=== PATIENT | female | born 1945 | race Caucasian/White ===

== ENCOUNTER 2025-03-07 13:04 | Outpatient (AMB) | payer MEDICARE, SELFPAY ==
--- NOTE | 2025-03-07 13:05 | A.OFFPC_ITS ---
Vital Signs 3 03/07/25 13:17 Height 5 ft 2 in Weight 116 lb BMI 21.2 BP 123/63 Blood Pressure Location Lt brachial Position Sitting Respiration 16 Pulse 65 Pulse Source Pulse Oximeter Temp 97.8 F Temp Source Oral Pulse Oximetry (%) 98 Oxygen Delivery Method Room Air Intake Visit Reasons: RISK ASSESSMENT CONSULTANT / BP/ fluid retention abd Intake Note: Patient present to establish care and also discuss bp and fluid retention in the abd. Military Technology Specialist Required: Yes Accompanied by: Daughter Allergies No Known Allergies Allergy (Verified 03/07/25 13:11) Tobacco use date assessed: 03/07/25 Fall risk assessment: No Falls in past year Last assessed Fall Risk: 03/07/25 Dental Screening Dental Screen Date: 03/07/25 Did you have a dental visit in the last 12 months?: Yes Did you have a dental problem in the last 6 months where you did not have access to dental care?: No Was dental information given to patient?: Patient has dentist HPI HPI Comments 2 History of Present Illness0 Details History of Present Illness The patient is a 79-year-old female presenting for the management of a recurrent seroma post-ventral hernia repair. Ventral hernia repair with mesh complicated by recurrent mesh seroma: The patient has a history of ventral hernia repair with synthetic mesh placement 20 to 25 years ago. Complications with the mesh have led to a recurrent seroma requiring multiple aspirations, the latest being on March 01, 2023. The seroma typically presents with fluid accumulation, which causes back pain and anxiety if not drained every three to four weeks. Initial interventions included the placement of a catheter for drainage, which was removed due to infection risk. Fluid aspirated has consistently tested negative for infection. Dementia: The patient has been observed to have progressive memory decline and forgetfulness, suggestive of dementia. While she has not been formally diagnosed, symptoms indicate cognitive impairment consistent with her age. Surgical History: - Ventral hernia repair with synthetic m esh placement, approximately 20 to 25 years ago - Multiple aspirations for mesh seroma - Vaginectomy, colpoclesis, anterior-pos terior repair, elevator anniplication, mid-urethral sling and cystoscopy, 2022 Medications: - Carvedilol for hypertension Social History: - Resides in an apartment with [facility]; they do not live with their children - The patient's daughter provides primar y care assistance, including bathing and support with daily activities - Uses a cane for ambulation and require s support due to imbalance issues Family History: - No family medical history was discusse d Diagnostic Results: - Aspiration of mesh seroma on March 01, 2023, yielded fluid negative for infection Past Medical History - Paroxysmal atrial fibrillation - Hyperlipidemia - Essential hypertension - Vaginal prolapse - Cystocele - 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 - Cognitive impairment suggestive of dem entia Health Maintenance - Last colonoscopy was reportedly within normal screening intervals - Previous mammogram and Pap smears are not applicable due to hysterectomy PFSH Medical History (Updated 03/07/25 @ 14:48 by John Haddad MD) Use of cane as ambulatory aid Thickened nails Abdominal wall seroma Excessive fluid in stomach Hypertension Surgical History (Updated 03/07/25 @ 13:30 by Brijesh Wyatt CMA) H/O ovarian cystectomy H/O hernia repair Social History (Updated 03/07/25 @ 13:16 by Brijesh Wyatt CMA) Housing: Apartment Alcohol intake: never Patient Tobacco Use Status: Never used Tobacco e-Cigarette/Vaping Use: Never Used Second Hand Smoke Exposure: No service: No Current occupational status: unemployed Cognitive needs: No Hearing needs: No Vision needs: No Questionnaire PHQ-9 Over the last 2 weeks, how often have you been bothered by any of the following problems? 1. Little interest or pleasure in doing things: nearly every day 2. Feeling down, depressed, or hopeless: nearly every day 3. Trouble falling or staying asleep, or sleeping too much: several days 4. Feeling tired or having little energy: several days 5. Poor appetite or overeating: several days 6. Feeling bad about yourself - or that you are a failure or have let yourself or your family down: several days 7. Trouble concentrating on things, such as reading the newspaper or watching television: not at all 8. Moving or speaking so slowly that other people could have noticed. Or the opposite - being so fidgety or restless that you have been moving around a lot more than usual: not at all 9. Thoughts that you would be better off or of hurting yourself in some way: not at all Total score: 10 Depression Screening Interpretation: Positive Depression Screening Done: Yes 50848 - PHQ-9 Billing: Yes Source: Developed by Drs. Augustine Colbert, Abdirahman Castillo and colleagues, with an educational joellen from [employer]. Thrive Questionnaire Date Thrive assessed: 03/07/25 I am a: Patient What is your living situation today?: I have a steady place to live Within the past 12 months, did the food you bought not last and you didn't have the money to get more?: I choose not to answer this question Within the past 12 months, did you worry whether your food would run out before you got money to buy more?: I choose not to answer this question Do you have trouble paying for medicines?: I choose not to answer this question Do you have trouble getting transportation to medical appointments?: I choose not to answer this question Do you have trouble paying your heating and electricity bill?: I choose not to answer this question Do you have trouble taking care of your child, family member or friend?: I choose not to answer this question Are you currently unemployed and looking for a job?: I choose not to answer this question Are you interested in more education?: I choose not to answer this question Please select the resources that you would like help with: None Currently or been in a relationship where the following occur: I choose not to answer THRIVE Score: 0 AUDIT C Alcohol Use Questionnaire (AUDIT-C) 1. How often do you have a drink containing alcohol?: Never Total Score: 0 NICOLE-7 AMB Questionnaire NICOLE-7 Date NICOLE - 7 assessed: 03/07/25 Feeling nervous, anxious, or on edge: 3 = Nearly every day Not being able to stop or control worryin = Several days Worrying too much about different things: 1 = Several days Trouble relaxin = Several days Being so restless that it is hard to sit still: 1 = Several days Becoming easily annoyed or irritable: 1 = Several days Feeling afraid as if something awful might happen: 1 = Several days Total NICOLE-7 score (0-4 normal; 5-9 mild; 10-14 moderate; 15-21 severe): 9 Source: Developed by Drs. Augustine Colbert, Eileen Mendoza, Abdirahman Anguiano and colleagues, with an educational joellen from [employer]. NICOLE-7 Assessment Billing NICOLE-7 Assessment Tool: NICOLE-7 Assessment 03187 Review of Systems Narrative Review of Systems - Neurologic: Reports memory issues and forgetfulness - Ear, Nose, and Throat: Reports ringing in both ears, more pronounced in the left - Musculoskeletal: Reports imbalance when walking; uses a cane for stability - Dermatologic: Reports dry skin and thick toenails 10-point ROS reviewed and negative except as noted in HPI Physical exam (Primary Care) Vital Signs: Last Vital Signs Temp 97.8 F 03/07/25 13:17 Pulse 65 03/07/25 13:17 Resp 16 03/07/25 13:17 BP 123/63 03/07/25 13:17 Pulse Ox 98 03/07/25 13:17 Oxygen Delivery Method Room Air 03/07/25 13:17 BMI result Body Mass Index 21.2 Tobacco/Smoking Status: Tobacco use Status Tobacco use date assessed 03/07/25 03/07/25 13:17 Patient Tobacco Use Status Never used Tobacco 03/07/25 13:17 e-Cigarette/Vaping Use Never Used 03/07/25 13:17 PHQ-9: PHQ-9 Score PHQ-9: Total score 10 03/07/25 13:29 Depression Screening Interpretation: Positive Thrive Assessment: Date of Thrive Assessment Date Thrive assessed 03/07/25 03/07/25 13:07 Currently or been in a relationship where the following occur: I choose not to answer Narrative Physical Exam General: Well-appearing, in no acute distress. Vital signs: Within normal limits. HEENT: Normocephalic, atraumatic. PERRLA, EOMI. Conjunctiva clear, sclera anicteric. Oropharynx clear, mucous membranes moist. TMs intact bilaterally. Reports of ringing in both ears, mostly the left. Neck: Supple, no lymphadenopathy, no thyromegaly, no JVD or carotid bruits. Cardiovascular: RRR, normal S1/S2, no murmurs, rubs, or gallops. Peripheral pulses 2+ and symmetric. No edema. Respiratory: Lungs clear to auscultation bilaterally, no wheezes, rales, or rhonchi. Normal effort. Abdomen: Soft, non-tender, non-distended. Normoactive bowel sounds. No hepatosplenomegaly, no masses. Presence of seroma, fluid being aspirated regularly. MSK: Full range of motion, no joint swelling or deformity. Normal gait. Uses a cane at home for balance. Skin: Warm, dry, intact. No rashes, lesions, or pallor. Skin and hands are dry. Neuro: Alert and oriented x3. Cranial nerves II-XII intact. Strength 5/5 throughout. Sensation intact. Reflexes 2+ symmetric. Normal coordination and gait. Reports of unbalance. Psych: Appropriate mood and affect. Normal judgment and insight. Concerns of dementia setting in. Coding Level of Care Code New Pt Level 4 (95948) Diagnoses Thickened nails L60.2 Abdominal wall seroma S30.11XA Hypertension I10 Use of cane as ambulatory aid Z99.89 Additional Codes NICOLE-7 Assessment Billing - NICOLE-7 Assessment Tool: NICOLE-7 Assessment 37876 ([id number]) PHQ-9 - 41124 - PHQ-9 Billing: Yes ([id number]) Assessment & Plan Assessment & Plan (1) Thickened nails: Code(s): L60.2 - Onychogryphosis Category: Medical (2) Abdominal wall seroma: Code(s): S30.11XA - Contusion of abdominal wall, initial encounter Category: Medical (3) Hypertension: Code(s): I10 - Essential (primary) hypertension Category: Medical (4) Use of cane as ambulatory aid: Code(s): Z99.89 - Dependence on other enabling machines and devices Category: Medical Plan Consent Discussion regarding the need for regular drainage of the recurrent seroma. Discussed potential complications associated with seroma aspiration, such as infection risk. Risks, benefits, and alternatives were discussed with the patient's daughter, Tatiana. Permission was given to proceed with referrals to general surgery and interventional radiology. Patient was informed and verbally consented to the use of an ambient scribe for clinic note documentation during this visit. Plan 1. Ventral Hernia Repair With Synthetic Mesh Complicated By Recurrent Mesh Seroma - Immediate referrals made to both general surgery and interventional radiology for evaluation and management of recurrent seroma. - Plan for seroma aspiration every 3-4 weeks as symptoms progress, based on patient comfort and interval assessment by specialists. - Discussed benefits of avoiding complications such as infection and progressive pain. 2. Dementia - A formal cognitive assessment to be considered during follow-up visits for a potential diagnosis. - Monitor for any progression of symptoms and provide supportive care. Discussion Notes I explained the likely need for ongoing management of her recurrent seroma through regular aspirations, approximately every 3-4 weeks, to prevent discomfort and potential complications. I reviewed the risks associated with seroma aspiration, including minimal infection risk and the necessity of prompt intervention if symptoms worsen. I discussed her current medication regimen, confirming that carvedilol is appropriate for blood pressure management. Referral to both general surgery and interventional radiology was deemed necessary to ensure continued management of the seroma. A referral to podiatry was made for nail management. We discussed potential risks associated with her cognitive decline, suspected to be early dementia. Patient Instructions - Follow up for scheduled appointments with general surgery and interventional radiology. - Monitor for any increase in pain, swelling, or signs of infection at seroma site and seek prompt medical evaluation if these occur. - Continue current medication regimen. - Use a cane as needed for balance and avoid hazardous movements. - Attend podiatry referral for toenail care. Medical Decision Making The patient presents with a complex history of recurrent seroma post-ventral hernia repair with mesh, necessitating a focused approach to prevent complications such as infection and increased symptomatic burden. Management primarily involves referral to specialists who can provide definitive intervention and guidance. The patient exhibits early signs of dementia, and future cognitive assessments may be beneficial to ascertain the extent of impairment and tailor supportive measures. A diligent approach to follow-up care is critical, ensuring all interventions are compatible with the patient's systemic condition and current health status. I confirmed that our management plan aligns with targeted relief of symptoms, consistent monitoring, and mitigation of potential complications. Total Time Statement 30 min Total time spent caring for the patient today includes pre-visit chart review, documentation, review of laboratory and diagnostic imaging results, medication reconciliation, medically necessary evaluation, counseling on diagnoses, care coordination, ordering appropriate tests and medications, review of tests performed by other providers, reporting test results to the patient, and communication with other healthcare providers. Orders: Orders 2 Complete Blood Count Auto Diff Today Z13.9 - Encounter for screening, unspecified TSH reflex Free T4 Today Z13.9 - Encounter for screening, unspecified Vitamin B12 and Folate Today Z13.9 - Encounter for screening, unspecified Magnesium Today Z13.9 - Encounter for screening, unspecified Vitamin D 1,25 dihydroxy Today Z13.9 - Encounter for screening, unspecified Hepatitis B Surface Antigen Today Z13.9 - Encounter for screening, unspecified Syphilis Screen Today Z13.9 - Encounter for screening, unspecified Comprehensive Met. Panel Today Z13.9 - Encounter for screening, unspecified Hepatitis C Antibody Today Z13.9 - Encounter for screening, unspecified HIV Ab/Ag Today Z13.9 - Encounter for screening, unspecified UA CC w/rflx Micro + Cult Today Z13.9 - Encounter for screening, unspecified Lipid Panel Today Z13.9 - Encounter for screening, unspecified Hemoglobin A1c Today Z13.9 - Encounter for screening, unspecified Hepatitis B Surface Antibody Today Z13.9 - Encounter for screening, unspecified Referrals 2 Interventional Radiology Referral S30.11XA - Contusion of abdominal wall, initial encounter General Surgery Referral S30.11XA - Contusion of abdominal wall, initial encounter Podiatry Referral L60.2 - Onychogryphosis
[2025-03-07 13:17] VITALS: BP 123/63; PULSE 65; RESP 16; TEMP 36.6; O2SAT 98; BMI 21.2
== END 2025-03-07 13:57 | disposition home or self-care (01) ==
LOC: HO.HMCFMS 13:04
PROVIDERS: PCP Student in an Organized Health Care Education/Training Program; Visit Provider Student in an Organized Health Care Education/Training Program
DX: L60.2 Onychogryphosis (principal); S30.11XA Contusion of abdominal wall, initial encounter; I10 Essential (primary) hypertension; Z99.89 Dependence on other enabling machines and devices

== ENCOUNTER 2025-03-07 13:04 | Outpatient (REF) | payer MEDICARE, SELFPAY ==
[2025-03-07 17:45] LABS: MANUAL DIFF FLAG NO
[2025-03-07 17:55] LABS: Appearance Urine Cloudy; Glucose Urine UA Negative (Negative); PH 6.0 (5.0-9.0); Specific Gravity - Urine 1.015 (1.005-1.025); UMIC TRIGGER UACC YES
[2025-03-07 18:01] LABS: Hematocrit 43.4 % (37.0-47.0); Hemoglobin 13.5 g/dl (12.0-16.0); Imm Gran Abs Auto 0.02 X10*3/uL (0.00-0.03); Imm Gran Pct Auto 0.3 % (0.0-0.4); Lymphocytes Absolute Auto 2.0 X10*3/uL (1.2-4.9); Mean Corpuscular HGB Conc 31.1 g/dl (31.0-35.0); Mean Corpuscular Hemoglobin 27.3 pg (27.0-33.0); Mean Corpuscular Volume 87.9 fL (80.0-98.0); NRBC Abs Auto 0.000 X10*3/uL (0.0-0.012); NRBC Pct Auto 0.0 /100WBC (0.0-0.2); Platelet Count 260 X10*3/uL (160-400); Red Blood Count 4.94 X10*6/uL (4.20-5.50); White Blood Count 5.7 X10*3/uL (4.8-10.8)
[2025-03-07 18:04] LABS: UACC Culture Trigger YES
[2025-03-07 18:28] LABS: Alanine Aminotransferase 16 U/L (0-31); Albumin Level 4.2 g/dL (3.5-5.0); Alkaline Phosphatase 92 U/L (39-117); Anion Gap 11 (12-20); Aspartate Amino Transferase 32 U/L (5-31); Blood Urea Nitrogen 10 mg/dL (9-16); Calcium 10.1 mg/dL (8.4-10.2); Carbon Dioxide 26 mmol/L (22-29); Chloride 106 mmol/L (96-108); Cholesterol 189 mg/dL (<200); Estimated Glomerular Filt Rate > 60; HDL Cholesterol 46 mg/dL (>40); Magnesium 2.5 mg/dL (1.6-2.6); Potassium 3.8 mmol/L (3.3-5.1); Sodium 139 mmol/L (135-145); Total Protein 7.3 g/dL (6.5-8.0); Triglycerides 139 mg/dL (<150)
[2025-03-07 18:54] LABS: Folate 6.1 ng/mL (> or = 4.0); Vitamin B12 393 pg/mL (200-900)
[2025-03-08 05:46] LABS: HBS Num1 0.34 mIU/mL (0-7.99); HBsAGNum1 0.35 S/CO (0.00-0.99); HIV Num 1 0.05 S/CO (0.00-0.99); Hepatitis B Surface Antigen Negative (Negative); ~HepC Num1 0.22 S/CO (0.00-0.79); ~Hepatitis B Surface Antibody NONREACTIVE (Nonreactive); ~Hepatitis C Antibody Nonreactive (Nonreactive)
[2025-03-08 05:57] LABS: Syphilis Screen Nonreactive (Nonreactive)
[2025-03-12 06:59] LABS: VITAMIN D (1,25 OH) D3 62 pg/mL; Vit D (1,25-Dihydroxy) Total 62 pg/mL (18-72); Vitamin D (1,25 OH) D2 <8 pg/mL
== END 2025-03-07 13:05 | disposition home or self-care (01) ==
LOC: HO.HKASLDS 13:04
PROVIDERS: PCP Internal Medicine; Visit Provider Student in an Organized Health Care Education/Training Program
DX: Z13.9 Encounter for screening, unspecified (principal); L60.2 Onychogryphosis; S30.11XA Contusion of abdominal wall, initial encounter; I10 Essential (primary) hypertension; Z99.89 Dependence on other enabling machines and devices
CPT/HCPCS: 36415; 80053; 80061; 81001; 82607; 82652; 82746; 83036; 83735; 84443; 85025; 86706; 86780; 86803; 87086; 87340; 87389; 96127; 99202; 99212

== ENCOUNTER 2025-03-13 09:14 | Outpatient (AMB) | payer MEDICARE, SELFPAY ==
[2025-03-13 09:18] VITALS: BP 130/59; PULSE 67; BMI 21.2
--- NOTE | 2025-03-13 09:18 | A.OFFVIS_ITS ---
Vital Signs 3 03/13/25 09:18 Height 5 ft 2 in Weight 116 lb BMI 21.2 BP 130/59 L Blood Pressure Location Rt radial Position Sitting Pulse 67 Intake Visit Reasons: recurrent fluid collection at old hernia Sx site Intake Note: Patient referred by PCP Dr. Haddad for assessment of recurrent fluid collection at old hernia surgical site on abdomen. Moved from [place] since December. Patient c/o: back pain. Daughter reports cyst underneath mesh that keeps getting filled. C/o bulge and Left inguinal hernia. [facility] [place] CT guided aspiration 03-01-2025 X2 at [facility] [place]. Reports 7 aspirations since May. [facility] report~ CT abdomen/pelvis 01-11-2025. [employer] Administrator Required: Yes [employer] Administrator Services: [employer] Administrator Offered & Declined (Patients daughter present who will serve as senior security analyst) Accompanied by: daughter Maya Allergies No Known Allergies Allergy (Verified 03/13/25 09:29) Medication List - Last Reconciled 03/13/25 by Hardik Vital MD carvedilol 3.125 mg PO BID HPI Comments Details: 79-year-old Yakut speaking female presents with past surgical history remarkable for implantation of mesh in her anterior abdominal wall for repair of a ventral hernia complicated by chronic seroma requiring drainage procedures. The patient's daughter who acts as her senior security analyst accompanies her and reports that her 1st surgery occurred around [address] Tex benedict at [facility] placed a mesh repair of ventral hernia at the same time she underwent gynecologic surgery. She lists her mother's prior operations as a ?vaginectomy?, colpoclesis, anterior and posterior repair, levator ani plication, mid urethral sling, and multiple cystoscopies. She goes on to say that her parents moved to [place] approximately a year ago but has since moved back from [place] because of family issues in her mother's declining health. She has required multiple aspirations of what she describes as a large? fluid pocket? in close proximity to the mesh in her mother's anterior abdominal wall. When the fluid builds up it apparently causes distress such as abdominal pain and back pain and abdominal compressive symptoms. She did see Dr. Fidelina Canas at [facility] a couple of times who recommended a chronic catheter. This apparently was placed at one point and caused great distress secondary to infection which has since cleared after the catheter was removed and the patient underwent antibiotic therapy. The patient's daughter is adamant that they do not want to have the catheter placed again. They are amenable to the idea of multiple intermittent drainage procedures from time to time. I have no records from any prior surgery or prior doctor's visits. COUNT INCLUDES THE [facility] Medical History (Updated 03/07/25 @ 14:48 by John Haddad MD) Use of cane as ambulatory aid Thickened nails Abdominal wall seroma Excessive fluid in stomach Hypertension Surgical History (Updated 03/13/25 @ 09:34 by SAAD Colón) History of midurethral sling procedure H/O: hysterectomy Hx of heart artery stent H/O ovarian cystectomy H/O hernia repair Social History (Updated 03/07/25 @ 13:16 by Brijesh Wyatt CMA) Housing: Apartment Alcohol intake: never Patient Tobacco Use Status: Never used Tobacco e-Cigarette/Vaping Use: Never Used Second Hand Smoke Exposure: No service: No Current occupational status: unemployed Cognitive needs: No Hearing needs: No Vision needs: No Review of Systems Const All systems reviewed & are unremarkable except as noted in HPI and below Physical Exam Vital Signs: Last Vital Signs Pulse 67 03/13/25 09:18 BP 130/59 L 03/13/25 09:18 BMI result Body Mass Index 21.2 Const Other: A pleasant but quite frail appearing elderly lady who ambulates with difficulty using a cane as well as heavy support from her daughter who studies her and helps move her forward. General: cooperative and no acute distress Nutritional Appearance: thin and other HEENT Head: Yes normal to inspection Eyes General: appearance normal, both eyes and all related structures Neck Neck: Yes normal visual inspection Chest Chest palpation & inspection: normal inspection of the chest Resp Effort & Inspection: normal respiratory effort and able to speak in complete sentences Cardio Rate: regular rate Rhythm: regular rhythm GI Other: Soft nontender, somewhat distended. (daughter reports this is her baseline) Extensive midline laparotomy scar that is well healed. Palpable stiffness in the anterior abdominal wall consistent with placement of prior prosthetic mesh type unknown. The left lateral region of the abdomen at what probably is the edge of the mesh there is a soft easily reducible golf ball-sized mass that is consistent with recurrent hernia. Aspirate it is on the right side they are pointed out at the daughter. They appeared healed sooner any other complication Abdomen image: 2 1. scar 2. Stiff tissue consistent with mesh-effect 3. 2-3cm soft reducible hernia Assessment & Plan Assessment & Plan (1) Abdominal wall seroma: Code(s): S30.11XA - Contusion of abdominal wall, initial encounter Category: Medical Plan: I told the daughter (and the patient) that I did not have a solution for them. I think any operative endeavor to try and remove the old mesh and reconstruct her anterior abdominal wall would most likely be something that she just would not survive. I think trying to repair her recurrent hernia would also be an event that she would not survive. I agree that placement of a chronic indwelling catheter we will most likely result in repeat infections and I do not think this is a tenable solution. The only thing I advocate it was the idea of episodic radiology guided aspiration of her seroma for symptomatic relief. The daughter discussed with me the possibility of sclerotherapy I told her I really did not know that much about it. I also feel it is probably more in the domain of Interventional Radiology. They are established at [facility] with the IR department there and so they will reconnect. I told the patient's daughter if they needed my help with anything of his happy to be there advocate, speak to someone or facilitate a process. They expressed a desire to undergo periodic symptomatic seroma aspirations (like paracentesis in a cirrhotic patient) and I think this is probably the only real avenue open to them. They said they would pursue that plan and reach out to me should they need any help. Coding Level of Care Code New Pt Level 3 (51765) Diagnoses Abdominal wall seroma S30.11XA Time Spent (min) 30 Comment Patient visit, record review and coordination of care time
== END 2025-03-13 09:57 | disposition home or self-care (01) ==
LOC: HO.HGS 09:15
PROVIDERS: PCP Student in an Organized Health Care Education/Training Program; Visit Provider Surgery
DX: S30.11XA Contusion of abdominal wall, initial encounter (principal); K80.20 Calculus of gallbladder without cholecystitis without obstruction
CPT/HCPCS: 99203

== ENCOUNTER → 2025-03-13 09:14 | Outpatient (BNVA) | payer MEDICARE, SELFPAY | PROVIDERS: PCP Student in an Organized Health Care Education/Training Program; Visit Provider Surgery | DX: S30.11XA Contusion of abdominal wall, initial encounter (principal); L76.34 Postprocedural seroma of skin and subcutaneous tissue following other procedure | CPT/HCPCS: 99202 ==

== ENCOUNTER 2025-03-21 14:51 | Outpatient (AMB) | payer MEDICARE, SELFPAY ==
--- OUTSIDE RECORDS SUMMARY | 2023-11-02 10:30 | XMS_ITS ---
Author Organization [facility] Address [address] [place] [address] Care Team Providers Care Contract Project Manager Name Role Phone Hannah MIGUEL, Rebel Primary Care Provider U David Callahan Unavailable [phone] Encounters Encounter [facility] [address] 11/02/2023 David Cook Plan Of Treatment No Information Progress Notes * Cindy RICHDOB:1945 (79 yo F)Acc No.[id number]:11/02/2023 Progress Note Patient: Cindy VIERA Provider: Gretchen Cook DPM :1945 A ge:78 Y S ex:Female Date:11/02/2023 Address:[address] [place] [address] Pcp:Rebel Young MD Subjective: * Chief Complaints: [...] 0 11/02/2023 Generated for Loci jyothi/Nagi/eTransmitting on: 05/22/2024 06:58 PM EST
--- OUTSIDE RECORDS SUMMARY | 2023-12-07 10:30 | XMS_ITS ---
Author Organization [facility] Address [address] [place] [address] Care Team Providers Care Stitch Burnisher Name Role Phone Hannah MIGUEL, Rebel Primary Care Provider U David Callahan Unavailable [phone] Encounters Encounter [facility] [address] 12/07/2023 David Cook Plan Of Treatment No Information Progress Notes * Cindy RICHDOB:1945 (79 yo F)Acc No.[id number]:12/07/2023 Progress Note Patient: Cindy VIERA Provider: Gretchen Cook DPM :1945 A ge:78 Y S ex:Female Date:12/07/2023 Address:[address] [place] [address] Pcp:Rebel Young MD Subjective: * Chief Complaints: * * Medical History: Objective: * Vitals: Assessment: Plan: * Treatment: * Images: * The named appointment provid er may or may not be the originator of this progress note, and it is not deemed complete until electronically signed by the appointment provider. Sign off status: Pending * Provider: Gretchen Cook DPM Date: 0 12/07/2023 Generated for Loci jyothi/Nagi/eTransmitting on: 05/22/2024 06:58 PM EST
--- OUTSIDE RECORDS SUMMARY | 2024-09-13 06:30 | XMS_ITS ---
Author Organization [facility] Address [address] [place] [phone] Care Team Providers Care Telegraph Office Route Aide Name Role Phone LUIS DANIEL BISHOP Primary Care Provider Kat NULL MD, POLLO Unavailable REASON FOR VISIT US FLUID CAT W/ IMAGING Encounters Encounter Location Date Provider Diagnosis [facility] [address] [place] [address] [place] [address] 09/13/2024 POLLO NULL MD Plan Of Treatment No Information Progress Notes * DEBORA ZAVALADOB:1945 (79 yo F)Acc No.[id number]:09/13/2024 Progress Notes Patient: DEBORA VIERA Provider: Bebe Null M.D. :1945 A ge:79 Y S ex:Female Date:09/13/2024 Address:[address] [facility] [address] [place], [place] [phone] Pcp:LUIS DANIEL BISHOP Subjective: * Chief Complaints: * U S FLUID CAT W/ IMAGING Billing Information: * Procedure Codes: * Electronic signature of PRES ELIZABETH NULL MD on 03/21/2025 at 05:57 PM TELEPHONE APPOINTMENT CLERK Sign off status: Pending * Provider: Bebe Null M.D. Date: 0 09/13/2024 Generated for Loci ng/Faxing/eTransmitting on: 1 05/22/2024 05:57 PM TELEPHONE APPOINTMENT CLERK
--- OUTSIDE RECORDS SUMMARY | 2024-10-10 10:30 | XMS_ITS ---
Author Organization [facility] Address [address] [place], [place] [phone] Care Team Providers Care Master Barber Name Role Phone DionicioRex real Primary Care Provider Debbi Tomlinson Unavailable [phone] REASON FOR VISIT CRS follow up, MSSA [...] Provider Diagnosis [facility] [address] [facility] [address] [place] [address] 10/10/2024 Debbi Hernandez Assessments Encounter Date Diagnosis [...] Notes * DEBORA ZAVALADOB:1945 (79 yo F)Acc No.[id number]:10/10/2024 Progress Notes Patient: DEBORA VIERA Provider: Augusta Hernandez MD :1945 A ge:79 Y S ex:Female Date:10/10/2024 Address:[address] [place], [place] [address], [place] [address], [facility] Pcp:Rex Packer Subjective: * Chief Complaints: * [...] Electronic signature of Bhavin Hernandez MD on 03/21/2025 at 05:58 PM UR COORDINATOR Sign off status: Pending * Provider: Augusta Hernandez MD Date: 0 10/10/2024 Generated for Aman roe/Nagi/Arielaitting on: 1 05/22/2024 05:58 PM UR COORDINATOR History and Physical Notes * HPI (History [...]
--- OUTSIDE RECORDS SUMMARY | 2025-03-20 23:59 | XMS_ITS | Continuity of Care Document ---
Author Organization [address] [place] [address]- Care Team Providers Care Hand Stemmer Name Role Phone Not on Staff, PCP Primary Care Physician Unavail able Encounter [facility] R [id number] Date(s): 02/18/25 - 03/20/[address] [place] [address]- Attending Physician: Kirti Willoughby Admitting Physician: Kirti Willoughby Referring Physician: Kirti Willoughby Encounter Type: Triage Allergies, Adverse Reactions, Alerts No Known Allergies Medications carvedilol 3.125 mg oral tablet See Instructions, 1 tablet By Mouth 2 times a day depending on BP, Refills 0, Maintenance, :37:00 AM EST, Instructions Replace Required Details, Partial fill upon patient request if the prescription is for a schedule II opioid drug. Start Date: 03/01/25 Status: Ordered Medication Dispense Status: Completed Total Allowed Fills: 1 Fills Dispensed: 0 Coreg 12.5 mg oral tablet 12.5 mg, 1, tablet, By Mouth, 2 times a day, # 60 tablet, Refills 0, Maintenance, 08/18/22 11:45:00 AM EDT, Partial fill upon patient request if the prescription is for a schedule II opioid drug. Start Date: 08/18/22 Status: Ordered Medication Dispense Status: Completed Quantity: 60.0 Unit: tablet Total Allowed Fills: 1 Fills Dispensed: 0 estradiol 0.1 mg/g vaginal cream = 1 Gm, Vaginally, Daily at bedtime, Use 3x a week, # 42.5 Gm, 11 Refills, Maintenance, 09/29/22 4:50:00 PM EDT, [facility] #[id number], Partial fill upon patient request if the prescription is for a schedule II opioid drug., 163, cm, 09/20/22 11:47:00 EDT, Height, 57.2, kg, 09/29/22 16:41:00 EDT, Dry Weight Start Date: 09/29/22 Status: Ordered Medication Dispense Status: Completed Quantity: 42.5 Unit: g Total Allowed Fills: 12 Fills Dispensed: 0 lisinopril 10 mg oral tablet 10 mg, 1, tablet, By Mouth, Daily, # 30 tablet, Refills 11, Tot. Refills 11, Maintenance, 08/09/23 1:29:00 PM EDT, Route to Pharmacy Electronically, [facility] #[id number], Partial fill upon patient request if the prescription is for a schedule II opioid drug., 163, cm, 08/09/23 13:23:00 EDT, Height, 59.5, kg, 02/14/23 15:35:00 EST, Dry Weight Start Date: 08/09/23 Status: Ordered Medication Dispense Status: Completed Quantity: 30.0 Unit: tablet Total Allowed Fills: 12 Fills Dispensed: 0 magnesium (as citrate)-melatonin 71.5 mg-1 mg oral tablet 2 tablet, By Mouth, Daily, 0 Refills, Maintenance, 01/21/25 4:02:00 PM EDT, Partial fill upon patient request if the prescription is for a schedule II opioid drug. Start Date: 01/21/25 Status: Ordered Medication Dispense Status: Completed Total Allowed Fills: 1 Fills Dispensed: 0 mirabegron 25 mg oral tablet, extended release 1 tablet = 25 mg, By Mouth, Daily, # 30 tablet, 11 Refills, Maintenance, 11/05/22 2:58:00 PM EDT, Partial fill upon patient request if the prescription is for a schedule II opioid drug. Start Date: 11/05/22 Status: Ordered Medication Dispense Status: Completed Quantity: 30.0 Unit: tablet Total Allowed Fills: 12 Fills Dispensed: 0 Vitamin B12 1000 mcg oral tablet 1 tablet = 1,000 mcg, By Mouth, Daily, # 30 tablet, 0 Refills, Maintenance, 09/24/14 2:40:29 PM EDT,Tablet Start Date: 09/24/14 Status: Ordered Medication Dispense Status: Completed Quantity: 30.0 Unit: tablet Total Allowed Fills: 1 Fills Dispensed: 0 Vitamin C By Mouth, Daily, 0 Refills, Maintenance, 01/21/25 4:01:00 PM EDT, Partial fill upon patient requestif the prescription is for a schedule II opioid drug. Start Date: 01/21/25 Status: Ordered Medication Dispense Status: Completed Total Allowed Fills: 1 Fills Dispensed: 0 Vitamin D3 1000 intl units oral tablet See Instructions, 2,000 units By Mouth Daily, # 30 tablet, 3 Refills, 01/02/09 9:19:10 AM EDT Start Date: 01/02/09 Status: Ordered Medication Dispense Status: Completed Quantity: 30.0 Unit: tablet Total Allowed Fills: 4 Fills Dispensed: 0 Vitamin E By Mouth, 0 Refills, Maintenance, 01/21/25 4:01:00 PM EDT, Partial fill upon patient request if theprescription is for a schedule II opioid drug. 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 Hyperlipidemia Confirmed Active Hypertension Confirmed Active Cystocele, midline Confirmed Active Nocturia Confirmed Active Overactive bladder Confirmed Active Paroxysmal A-fib Confirmed Active Urethral hypermobility Confirmed Active Social History Social History Type Response Smoking Status Never smoker entered on: 12/26/13 Sex Sex Representation Female (finding) Implantable Device List Procedure Provider Procedure Date Device Type Site Colpocleisis Vagina Kylee Vigil MD 09/06/22 Unknown Urethra Device Identifier Serial Number Lot or Batch Number Manufacturing Date Expiration Date Distinct Identification Code MRI Safety Implantable Status Assigning Authority Unknown [id number] 11-02 [id number] 4 Unknown 11/04/24 Unknown Unknown Active Unknown Patient Care team information Care Team Personnel Name: Lucio Rodgers RN Position: [facility] RN Member Role: Primary Care Nurse Name: Jonathan Li RN Position: [facility] RN Member Role: Primary Care Nurse Name: Not on Staff, PCP Position: [facility] Physician (General Medicine) Member Role: PCP Name: Alexis Hanks RN Position: [facility] RN Member Role: Primary Care Nurse Care Team Related Persons Name: JERMAINE BISWAS Name: OZ, DIEUDONNE Name: DANELLE HEART Insurance Providers Guarantor name: DEBORA ZAVALA [facility] Information #: 1 Payer: [facility] [employer] O Payer Identifier: NA Member Number: [id number] Group Number: NA Subscriber Identifier: NA Relationship to Subscriber: self Coverage Type: NA Coverage Verification Date: NA Telecom: NA Address: NA Health Plan Information #: 2 Payer: [facility] Payer Identifier: NA Member Number: [id number] Group Number: NA Subscriber Identifier: NA Relationship to Subscriber: self Coverage Type: NA Coverage Verification Date: NA Telecom: NA Address: Health Plan Information #: 3 Payer: [facility] [employer] Payer Identifier: NA Member Number: [id number] Group Number: NA Subscriber Identifier: NA Relationship to Subscriber: self Coverage Type: MEDICAID Coverage Verification Date: NA Telecom: NA Address: NA Health Plan Information #: 4 Payer: MEDICAID [employer]OF STATE Payer Identifier: NA Member Number: [id number] Group Number: NA Subscriber Identifier: NA Relationship to Subscriber: self Coverage Type: MEDICAID Coverage Verification Date: NA Telecom: Address:
--- NOTE | 2025-03-21 14:56 | A.OFFPC_ITS ---
Vital Signs 03/21/25 15:01 Height 5 ft 2 in Weight 115 lb 8 oz BMI 21.1 BP 126/63 Blood Pressure Location Lt brachial Position Sitting Respiration 16 Pulse 66 Pulse Source Pulse Oximeter Temp 97.8 F Temp Source Oral Pulse Oximetry (%) 99 Oxygen Delivery Method Room Air Intake Visit Reasons: 2 wk - lab review Intake Note: Patient present for lab review and patient is complaining about worsening of hemmroids. Meter Tester Primary Required: Yes Meter Tester Primary Name: Daughter Accompanied by: Daughter Allergies No Known Allergies Allergy (Verified 03/21/25 14:59) Medication List - Last Reconciled 03/23/25 by John Haddad MD carvedilol 3.125 mg PO BID cyanocobalamin (vitamin B-12) 1,000 mcg PO DAILY Tobacco use date assessed: 03/07/25 Fall risk assessment: No Falls in past year Last assessed Fall Risk: 03/21/25 Dental Screening Dental Screen Date: 03/07/25 HPI HPI Comments History of Present Illness Details History of Present Illness The patient is a 79 year old female presenting for a follow-up visit to review lab results and manage multiple chronic conditions, including a cyst, hemorrhoids, and dementia. Cyst: The patient was evaluated by a general surgeon who determined there was nothing they could do and deferred management to interventional radiology. A prior recommendation for a catheter was refused by the family due to the patient's dementia and associated risks. The patient has an appointment scheduled with interventional radiology for a needle-guided drainage, and sclerotherapy has been mentioned as a potential future option to shrink the cyst. Dementia: The patient has a diagnosis of dementia, which manifests as sundowning, where her anxiety and worry increase in the evening. Her dementia previously led to complications with a catheter, which she pulled out, resulting in sepsis. The family currently manages her behavior with redirection and has safety measures in place, such as living in an apartment without stairs to prevent falls. External Hemorrhoids: The patient has been experiencing bleeding from external hemorrhoids, which has become more frequent recently. A topical cream was applied, but it caused a burning sensation. Coronary Artery Disease: The patient has a history of coronary artery stents placed around 2001 or 2002. She has been followed by cardiology but recently missed an appointment. Weakness: The patient sometimes reports feeling weak and describes a sensation of her pena ds and feet dropping. Surgical History: - Coronary artery stent placement (circa [id number]) Medications: - Topical cream for hemorrhoids (name no t specified) Social History: - Housing: Lives in an apartment with no stairs. - Functional Status: Diagnosed with robin ntia, experiences sundowning, and requires family support for care and redirection. Diagnostic Results: - Complete Blood Count: White blood cell s, red blood cells, hemoglobin, hematocrit, and platelets are within normal limits. - Comprehensive Metabolic Panel: Sodium, potassium, chloride, and renal function are good. - Liver Function Tests: Total bilirubin, ALT, AST, and alkaline phosphatase are good. - Lipid Panel: Total protein, albumin, a nd triglycerides are great; LDL was 116 mg/dL on a non-fasting sample. - Glucose: Random glucose was 83 mg/dL. - Hemoglobin A1c: 5.6%. - Vitamins/Hormones: Vitamin B12 is 180, while Vitamin D, folate, and thyroid levels are good. - Urinalysis: Positive for trace blood, leukocyte esterase, and elevated white blood cells, consistent with asymptomatic bacteriuria. - Infectious Disease Screen: Negative fo r Celiac disease, Hepatitis B, Hepatitis C, and HIV. Past Medical History - Dementia - History of sepsis, which occurred afte r she pulled out a catheter. - Coronary artery disease with stent vicente cement in 2001 or 2002. Health Maintenance - The patient has an upcoming appointmen t with a detective and intelligence analyst. - Fall precautions are in place; the pat precious lives in a single-level apartment. med rec summary This case involves a 79-year-old female with a complex medical history, primarily characterized by recurrent abdominal issues stemming from a remote ventral hernia repair, alongside significant cardiovascular and renal disease. Throughout the provided records from April 2020 to February 2025, she is managed for chronic conditions including essential hypertension, hyperlipidemia, atherosclerosis, and chronic constipation. Her care is complicated by cognitive impairment, including poor insight and memory deficits, and a moderate risk for falls. The patient has a significant history of pre-existing conditions. A DEXA scan in April 2020 revealed osteopenia.?Her cardiovascular history includes coronary artery disease with two stents placed in 2006 and 2007, aortic atherosclerosis, and a consistently noted 2/6 heart murmur.?She also has hypertensive kidney disease, which is classified at different times as stage 1 or 2 Chronic Kidney Disease (CKD).?Other chronic diagnoses include vitamin B12 deficiency, iron deficiency anemia, and mixed urinary incontinence. The primary focus of her medical encounters is a recurring and problematic abdominal fluid collection. 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 The patient experienced multiple related symptoms, including abdominal pain, distention, bloating, nausea, and chronic constipation.?She also presented with recurrent urinary tract infections, with a urine culture in July 2024 showing Staphylococcus aureus.?On November 29, 2024, she complained of abdominal burning, bloating, and excessive belching, leading to a diagnosis of GERD without esophagitis.?Her intermittent numbness and weakness in the extremities were suspected to be anxiety-related. Treatment for her conditions involved both medication management and procedural interventions. Her hypertension and cardiac conditions were managed with medications including carvedilol, lisinopril, and amlodipine.?Her recurrent abdominal fluid collection required multiple CT-guided aspiration procedures. On January 25, 2025, approximately 650 mL of cloudy yellow fluid was aspirated.?Another procedure on March 01, 2025, removed 1000 mL of turbid, yellow fluid.?She also received IV antibiotics via a PICC line for an abdominal infection. Additional prescribed treatments addressed her other symptoms. For urinary incontinence, she was prescribed Myrbetriq and later oxybutynin.?Her recurrent UTI was treated with intramuscular ceftriaxone and oral ciprofloxacin.?Chronic constipation was managed with castor oil, Miralax, and stool softeners.?GERD symptoms were addressed with omeprazole.?She also took vitamin B12 supplements for her deficiency. The prognosis is guarded due to the recurrent nature of the mesh-related fluid collection and her multiple comorbidities. The plan as of late 2024 involved ongoing monitoring and symptomatic management. This included encouraging ambulation, dietary modifications, and continuing medications for her chronic conditions.?Recommended future treatment included follow-up with a general surgeon, Dr. Marlow, for further evaluation of the mesh-related issues and consideration of surgical intervention.?Additionally, referrals to urology and cardiology were made for management of recurrent UTIs and her cardiovascular dis ease, respectively.?Regular follow-up visits with her primary care provider were scheduled to monitor her overall condition. [facility] Medical History (Updated 03/23/25 @ 18:53 by John Haddad MD) Chronic constipation Hyperlipidemia Hemorrhoids Use of cane as ambulatory aid Thickened nails Abdominal wall seroma Excessive fluid in stomach Hypertension Surgical History (Updated 03/21/25 @ 15:18 by John Haddad MD) History of midurethral sling procedure H/O: hysterectomy Hx of heart artery stent H/O ovarian cystectomy H/O hernia repair Social History (Updated 03/21/25 @ 15:01 by Brijesh Wyatt CMA) Housing: Apartment Alcohol intake: never Patient Tobacco Use Status: Never used Tobacco e-Cigarette/Vaping Use: Never Used Second Hand Smoke Exposure: No service: No Current occupational status: unemployed Cognitive needs: No Hearing needs: No Vision needs: No Questionnaire Thrive Questionnaire Date Thrive assessed: 03/07/25 I am a: Patient What is your living situation today?: I have a steady place to live Within the past 12 months, did the food you bought not last and you didn't have the money to get more?: I choose not to answer this question Within the past 12 months, did you worry whether your food would run out before you got money to buy more?: I choose not to answer this question Do you have trouble paying for medicines?: I choose not to answer this question Do you have trouble getting transportation to medical appointments?: I choose not to answer this question Do you have trouble paying your heating and electricity bill?: I choose not to answer this question Do you have trouble taking care of your child, family member or friend?: I choose not to answer this question Do you have trouble with day-to-day activities such as bathing, preparing meals, shopping, managing finances, etc.?: Yes Are you currently unemployed and looking for a job?: I choose not to answer this question Are you interested in more education?: I choose not to answer this question Please select the resources that you would like help with: None Currently or been in a relationship where the following occur: I choose not to answer THRIVE Score: 0 AUDIT C Alcohol Use Questionnaire (AUDIT-C) 3. How often do you have six or more drinks on one occasion?: Never Total Score: 0 NICOLE-7 AMB Questionnaire NICOLE-7 Date NICOLE - 7 assessed: 03/07/25 Source: Developed by Drs. Augustine Colbert, Eileen Mendoza, Abdirahman Anguiano and colleagues, with an educational joellen from [employer]. Review of Systems Narrative Review of Systems - Constitutional: Reports feeling weak and tired at times. - GI: Reports bleeding from external hemorrhoids. - : Denies urinary burning or frequency. - Musculoskeletal: Reports a sensation of her hands and feet dropping. - Psychiatric/Neurologic: Experiences sundowning with increased worry and anxiety at night as part of her dementia. 10-point ROS reviewed and negative except as noted in HPI Physical exam (Primary Care) Vital Signs: Last Vital Signs Temp 97.8 F 03/21/25 15:01 Pulse 66 03/21/25 15:01 Resp 16 03/21/25 15:01 BP 126/63 03/21/25 15:01 Pulse Ox 99 03/21/25 15:01 Oxygen Delivery Method Room Air 03/21/25 15:01 BMI result Body Mass Index 21.1 Tobacco/Smoking Status: Tobacco use Status Tobacco use date assessed 03/07/25 03/21/25 14:56 Patient Tobacco Use Status Never used Tobacco 03/21/25 15:01 e-Cigarette/Vaping Use Never Used 03/21/25 15:01 Thrive Assessment: Date of Thrive Assessment Date Thrive assessed 03/07/25 03/21/25 14:56 Currently or been in a relationship where the following occur: I choose not to answer Narrative Physical Exam General: Well-appearing, in no acute distress. Vital signs: Within normal limits. HEENT: Normocephalic, atraumatic. PERRLA, EOMI. Conjunctiva clear, sclera anicteric. Oropharynx clear, mucous membranes moist. TMs intact bilaterally. Left eye is very sensitive. Neck: Supple, no lymphadenopathy, no thyromegaly, no JVD or carotid bruits. Cardiovascular: RRR, normal S1/S2, no murmurs, rubs, or gallops. Peripheral pulses 2+ and symmetric. No edema. History of heart artery stents. Respiratory: Lungs clear to auscultation bilaterally, no wheezes, rales, or rhonchi. Normal effort. Shortness of breath noted. Abdomen: Soft, non-tender, non-distended. Normoactive bowel sounds. No hepatosplenomegaly, no masses. MSK: Full range of motion, no joint swelling or deformity. Normal gait. Skin: Warm, dry, intact. No rashes, lesions, or pallor. External hemorrhoids noted. Neuro: Alert and oriented x3. Cranial nerves II-XII intact. Strength 5/5 throughout. Sensation intact. Reflexes 2+ symmetric. Normal coordination and gait. Psych: Appropriate mood and affect. Normal judgment and insight. Sundowning noted. Coding Level of Care Code Est Pt Level 3 (30505) Add On Problem Visit Only Diagnoses Anxiety F41.9 Hx of heart artery stent Z95.5 Hypertension I10 Abdominal wall seroma S30.11XA Hemorrhoids K64.9 Use of cane as ambulatory aid Z99.89 Cognitive decline R41.89 Low vitamin B12 level R79.89 CAD (coronary artery disease) I25.10 Atherosclerosis I70.90 Osteopenia M85.80 CKD (chronic kidney disease) N18.9 Urinary incontinence, mixed N39.46 Assessment & Plan Assessment & Plan (1) Anxiety: Code(s): F41.9 - Anxiety disorder, unspecified Category: Medical (2) Hx of heart artery stent: Comment: [facility] stents X2~ 2002 Code(s): Z95.5 - Presence of coronary angioplasty implant and graft Category: Surgical (3) Hypertension: Code(s): I10 - Essential (primary) hypertension Category: Medical (4) Abdominal wall seroma: Code(s): S30.11XA - Contusion of abdominal wall, initial encounter Category: Medical (5) Hemorrhoids: Code(s): K64.9 - Unspecified hemorrhoids Category: Medical (6) Use of cane as ambulatory aid: Code(s): Z99.89 - Dependence on other enabling machines and devices Category: Medical (7) Cognitive decline: Code(s): R41.89 - Other symptoms and signs involving cognitive functions and awareness Category: Medical (8) Low vitamin B12 level: Code(s): R79.89 - Other specified abnormal findings of blood chemistry Category: Medical (9) CAD (coronary artery disease): Code(s): I25.10 - Atherosclerotic heart disease of [place] coronary artery without angina pectoris Category: Medical (10) Atherosclerosis: Code(s): I70.90 - Unspecified atherosclerosis Category: Medical (11) Osteopenia: Code(s): M85.80 - Other specified disorders of bone density and structure, unspecified site Category: Medical (12) CKD (chronic kidney disease): Code(s): N18.9 - Chronic kidney disease, unspecified Category: Medical (13) Urinary incontinence, mixed: Code(s): N39.46 - Mixed incontinence Category: Medical Plan Consent Discussions were held regarding upcoming procedures including a needle-guided drainage and potential sclerotherapy for a cyst. The family has an appointment to discuss these options further with interventional radiology. Informed refusal for a previously recommended catheter was noted, citing the patient's dementia and risk of self-removal and infection. Patient was informed and verbally consented to the use of an ambient scribe for clinic note documentation during this visit. Plan 1. Cyst (Unspecified) - Proceed with scheduled appointment with interventional radiology tomorrow for needle-guided drainage. - Sclerotherapy was noted as a potential future option to shrink the cyst and prevent recurrence. 2. External Hemorrhoids - A referral will be placed for the patient to be evaluated by a oil and gas specialist for management of her bleeding external hemorrhoids. 3. Coronary Artery Disease - A referral will be placed for follow-up with a show jumping instructor. - A complete diagnostic echocardiogram has been ordered to be completed prior to the cardiology appointment. 4. Vitamin B12 Deficiency - A prescription for vitamin B12 supplementation will be sent to the pharmacy. - The patient is to take one tablet daily for three months to replete her levels and help with symptoms of weakness. 5. Dementia - Continue current supportive care, including redirection techniques and maintaining a safe home environment to prevent falls. - The family was reassured that they are providing good care and that her condition is part of the aging process. 6. Asymptomatic Bacteriuria - No antibiotic treatment is indicated at this time as the patient is asymptoma tic. - The family was advised to monitor for behavioral changes or urinary symptoms (burning, frequency) which could indicate a developing symptomatic urinary tract infection. Discussion Notes I reviewed the patient's recent lab results with her and her family, noting that most values are excellent for her age. We discussed the low-normal vitamin B12 level, and I prescribed a supplement to address this and her symptoms of fatigue. I also explained that the findings on her urinalysis indicate asymptomatic bacteriuria, which does not require treatment at this time, but her family should monitor for any new symptoms. We discussed the plan for her cyst, which includes a needle-guided drainage procedure with interventional radiology tomorrow. I provided referrals to gastroenterology for her hemorrhoids and to cardiology for follow-up of her cardiac history, along with an order for an echocardiogram. I reassured the family that they are doing a great job managing her dementia and providing a safe environment. Patient Instructions - Take one vitamin B12 pill every day for the next 3 months. - Please go to your scheduled appointment with interventional radiology tomorrow for the cyst drainage. - We are referring you to a school library media specialist (show jumping instructor) and a digestive systems mgr (oil and gas specialist). - We have ordered a heart ultrasound (echocardiogram) for you to get done before you see the school library media specialist. - Our referral office will call you to help schedule the specialist appointments. - Call us if you notice any changes like burning with urination, needing to urinate more often, or significant changes in her behavior, as this could be a sign of infection. - Continue with your scheduled detective and intelligence analyst appointment next week. Medical Decision Making The patient is a 79-year-old female with multiple chronic issues, most notably dementia, which significantly influences her plan of care. Review of recent laboratory studies showed reassuring results overall, with commendable metabolic and hematologic profiles for her age. The low-normal vitamin B12 level of 180 is clinically significant in the context of her reported weakness and fatigue, warranting supplementation. Urinalysis findings are consistent with asymptomatic bacteriuria; in an elderly patient with dementia and no urinary symptoms, observation is preferred over antibiotic treatment to avoid unnecessary side effects and resistance. The care plan focuses on coordinating specialty care: proceeding with interventional radiology for cyst management, and arranging referrals to gastroenterology for symptomatic hemorrhoids and cardiology for managing her known coronary artery disease. An echocardiogram is ordered to provide the show jumping instructor with current data on cardiac structure and function. The overall goal is comfort and conservative management, supporting the family in their caregiving role. Total Time Statement 20 min Total time spent caring for the patient today includes pre-visit chart review, documentation, review of laboratory and diagnostic imaging results, medication reconciliation, medically necessary evaluation, counseling on diagnoses, care coordination, ordering appropriate tests and medications, review of tests performed by other providers, reporting test results to the patient, and communication with other healthcare providers. Orders: Orders CA echo transthoracic complete 03/21/25 Z95.5 - Presence of coronary angioplasty implant and graft Referrals Gastroenterology Referral K64.9 - Unspecified hemorrhoids Cardiology Referral Z95.5 - Presence of coronary angioplasty implant and graft Medications: New cyanocobalamin (vitamin B-12) 1,000 mcg PO DAILY 90 tabs 0RF
[2025-03-21 15:01] VITALS: BP 126/63; PULSE 66; RESP 16; TEMP 36.6; O2SAT 99; BMI 21.1
--- OUTSIDE RECORDS SUMMARY | 2025-03-21 18:58 | XMS_ITS | Patient Health Record ---
Author Organization [facility] Address [address] [place] [address] Care Team Providers Care Arm Maker Name Role Phone Hannah MIGUEL, [facility] Primary Care Provider U nguyen David Cook Unavailable [phone] Allergies No Known Allergies Reason For Referral No Information Medications Medication SIG (Take, Route, Frequency, Duration) Notes Start Date End Date Status Pantoprazole Sodium Not-Taking Vitamin B-12 1000 MCG Oral; Duration: 30 Active Vitamin D3 Not-Takin g Vitamin D (Ergocalciferol) 54851 UNIT Oral; Duration: 42 Active zzzCompression Stockings 20-30mm Hg . . .; Duration: . Active Carvedilol 12.5 MG 1 tablet with food Orally Active Orthopedic Extra Depth Shoes With Custom Heat Molded Multidensity Innersoles 1 Pair shoes with 3 Pair custom heat molded innersoles Wear Daily; Duration: 365 days Active Aspirin Not-Taking Atorvastatin Calcium 10 MG Oral; Duration: 90 Not-Taking Ciclopirox Olamine 0.77 % 1 application to affected area Externally Twice a day; Duration: 30 days Not-Takin g Isosorbide Mononitrate Not-Taking Lisinopril 20 MG Orally Act danay Ammonium Lactate 12 % 1 application to affected area Externally Twice a day to dry areas of skin on feet; Duration: 30 days 06/10/2016 Active Social History Tobacco Use: Social History Observation Description Date Details (start date - stop date) Never Smoker NA - NA Tobacco Use/Smoking Question Answer Notes Are you a: nonsmoker Additional Findings: Tobacco Non-User Aggressive non-smoker Alcohol Screen Question Answer Notes Did you have a drink containing alcohol in the p ast year? No Points 0 Interpretation Negative Tobacco use other than smoking: Question Answer Notes Are you an other tobacco user? No Problems Problem Type SNOMED Code ICD Code Onset Dates Problem Status W/U Status Risk Notes Problem Acquired hammer toe of right foot (2583679579760686 ) Other hammer toe(s) (acquired), right foot (M20.41) Active confirmed Response to treatment, Improvemen t Problem Acquired hammer toe of left foot (5345712833677107 ) Other hammer toe(s) (acquired), left foot (M20.42) Active confirmed Response to treatment, Improvemen t Problem Bilateral atherosclerosis of arteries of lower limbs (disorder) (2670613594340856 7) Atherosclerosis of enterprise artery of both lower extremities, with unspecified presence of clinical manifestation (I70.203) Active confirmed Plan Of Treatment Pending Test Test Name Order Date 67277-OEQOOMW NAIL, 6 OR MORE 02/07/2014 84228-VXUUUGH NAIL, 6 OR MORE 05/09/2014 51390-QOUFLGG NAIL, 6 OR MORE 08/14/2014 43747-JTRNOVL NAIL, 6 OR MORE 11/13/2014 88483-KQOMEED NAIL, 6 OR MORE 02/12/2015 35617-NEWXSDH NAIL, 6 OR MORE 05/14/2015 09672-XJYGHDI NAIL, 6 OR MORE 08/13/2015 37466-UAHARCV NAIL, 6 OR MORE 11/12/2015 89084-WKOVONV NAIL, 6 OR MORE 02/11/2016 11030-SROFOAQ NAIL, 6 OR MORE 06/10/2016 23889-URZIZGM NAIL, 6 OR MORE 09/09/2016 31462-EUMRCVE NAIL, 6 OR MORE 12/16/2016 50860-FOBOITL NAIL, 6 OR MORE 03/17/2017 05567-MIZGMER NAIL, 6 OR MORE 06/22/2017 66968-MOIQGJL NAIL, 6 OR MORE 09/21/2017 86753-WEYQIXO NAIL, 6 OR MORE 12/22/2017 13343-PVDICKY NAIL, 6 OR MORE 04/10/2018 85479-JUWIEVL NAIL, 6 OR MORE 07/10/2018 82913-VLSEOYP NAIL, 6 OR MORE 10/16/2018 73466-UBWYWDN NAIL, 6 OR MORE 01/17/2019 32966-EUWNRAY NAIL, 6 OR MORE 04/25/2019 24865-EEKRTXK NAIL, 6 OR MORE 2019 39257-BLKNIIS NAIL, 6 OR MORE 11/19/2019 00464-IHEHHEG NAIL, 6 OR MORE 03/17/2020 00038-XVAXPWH NAIL, 6 OR MORE 05/28/2020 32922-UIAATZR NAIL, 6 OR MORE 08/06/2020 11247-HANTAAT NAIL, 6 OR MORE 10/15/2020 28163-WQMGIUY NAIL, 6 OR MORE 01/05/2021 21777-CWKYBGV NAIL, 6 OR MORE 03/16/2021 45238-VQKFBRT NAIL, 6 OR MORE 05/21/2021 44850-VFTDPYB NAIL, 6 OR MORE 07/30/2021 91091-BQSTWNT NAIL, 6 OR MORE 10/12/2021 19179-VIQMAVK NAIL, 6 OR MORE 12/21/2021 60885-SQKWACA NAIL, 6 OR MORE 03/04/2022 41317-RONJZBS NAIL, 6 OR MORE 05/20/2022 45888-YPTXDAY NAIL, 6 OR MORE 07/29/2022 99445-GGUONAQ NAIL, 6 OR MORE 10/14/2022 35669-TDRPSZG NAIL, 6 OR MORE 12/16/2022 87642-UZMCOXQ NAIL, 6 OR MORE 03/30/2023 71334-GSCYHID NAIL, 6 OR MORE 06/08/2023 99834-FDYUYUI NAIL, 6 OR MORE 08/17/2023 56223-Dsxl Destruction, -03/30/2023 05494-Hjud Destruction, -12/16/2022 09693-Kmsj Destruction, -10/14/2022 71629-Wkja Destruction, -07/29/2022 72226-Jljg Destruction, -05/20/2022 19575-Yqyj Destruction, -03/04/2022 39159-Mfgh Destruction, 04-1712/21/2021 28366-Gqwl Destruction, 04-1710/12/2021 78605-Gdbq Destruction, -07/30/2021 68070-Nmfn Destruction, -05/21/2021 92156-Hmzp Destruction, -03/16/2021 54844-Ahbx Destruction, 1-14 01/05/2021 96022-QZQY SKIN LESIONS, OVER 4 01/06/20 24848-OWAP SKIN LESIONS, OVER 4 03/16/20 30893-JEZQ SKIN LESIONS, OVER 4 10/16/19 12431-FTNC SKIN LESIONS, OVER 4 08/07/19 74011-GJPD SKIN LESIONS, OVER 4 05/21/19 79497-ONSA SKIN LESIONS, OVER 4 07/31/19 26387-GSGY SKIN LESIONS, OVER 4 10/13/19 32181-SJVJ SKIN LESIONS, OVER 4 12/22/19 53726-NJTF SKIN LESIONS, OVER 4 05/28/19 78093-VGYZ SKIN LESIONS, OVER 4 03/17/20 23916-KYAK SKIN LESIONS, OVER 4 11/19/19 16637-YKSJ SKIN LESIONS, OVER 4 08/02/19 06451-WOIZ SKIN LESIONS, OVER 4 04/25/19 20166-LPGC SKIN LESIONS, OVER 4 01/18/20 19 92830-PTIN SKIN LESIONS, OVER 4 10/17/19 19 59883-OQPA SKIN LESIONS, OVER 4 07/11/19 19 71534-SUVM SKIN LESIONS, OVER 4 04/10/19 28330-HZBX SKIN LESIONS, OVER 4 12/23/19 18 82253-DATF SKIN LESIONS, OVER 4 09/22/19 18 91470-BLLW SKIN LESIONS, OVER 4 06/23/19 18 36177-RWLT SKIN LESIONS, OVER 4 03/17/20 17 85954-BJCD SKIN LESIONS, OVER 4 12/17/19 17 52904-MWND SKIN LESIONS, OVER 4 06/11/19 86598-KOTU SKIN LESIONS, OVER 4 09/10/19 17 62805-ZDUP SKIN LESIONS, OVER 4 03/04/20 85686-WABO SKIN LESIONS, OVER 4 05/20/19 43187-TJFF SKIN LESIONS, OVER 4 07/30/19 62265-UTXB SKIN LESIONS, OVER 4 10/15/19 23682-ADHO SKIN LESIONS, OVER 4 12/17/19 98894-FQAF SKIN LESIONS, OVER 4 03/30/20 31966-CLBP SKIN LESIONS, OVER 4 08/17/19 24 42416-OSBQ SKIN LESIONS, OVER 4 03/06/20 24 00928-SFVQ SKIN LESIONS, 2 TO 4 02/11/20 16 92373-SDCS SKIN LESIONS, 2 TO 4 11/12/19 16 92266-AONA SKIN LESIONS, 2 TO 4 08/13/19 16 48244-MVQC SKIN LESIONS, 2 TO 4 05/14/19 16 52767-WVJG SKIN LESIONS, 2 TO 4 02/13/20 15 90688-KQYP SKIN LESIONS, 2 TO 4 11/14/19 15 49425-FNYM SKIN LESIONS, 2 TO 4 08/15/19 15 64661-FNRS SKIN LESIONS, 2 TO 4 05/09/19 15 85337-ZHVT SKIN LESIONS, 2 TO 4 02/08/20 14 Insurance Providers Payer Name Payer Address Payer Phone Subscriber Number Group Number Insured Name Patient Relationship to Insured Coverage Start Date Coverage End Date [employer] [address] [address] [place] [address] [id number] Cindy Rich Self - patient is the insured Medical (General) History Medical History History ICD Code Cholesterol Heart disease Hypertension ASO/PVD Surgical History Surgery Date(Month/Year) hernia 2002 vaginectomy, colpocleisis, a nterior posterior repair, levator aniplication, sling, cystocopy 09/06/22 Hospitalization History Reason Date(Month/Year)
--- OUTSIDE RECORDS SUMMARY | 2025-03-21 18:58 | XMS_ITS | Patient Health Record ---
Author Organization [facility] Address [address] [place] [address] Care Team Providers Care Seamless Hosiery Knitter Name Role Phone LUIS DANIEL BISHOP Primary Care Provider Kat SOUZA MD, POLLO Unavailable [phone] Allergies No Known Allergies Results Component Value Reference Range Notes CT PERCUT ABSCESS DRAINAGE - CPT 76199 Reviewed date:08/30/2024 09:28:58 AM Interpretation: Performing Lab: Notes/Report: CT ABD/PEL W/O CONT - CPT 74 176 Reviewed date:08/08/2024 09:27:36 AM Interpretation: Performing Lab: Notes/Report: Signed [facility] [address] [place] [address] Patient: DEBORA ZAVALA Ordering Dr: POLLO SOUZA MD : [address]: BALDEMAR,PRIMARY PROVIDER Age/Sex: 78/F Family Dr: Pat Status: REG CLI Report #: [id number] Pat Loc: RCT Date: 07/31/24 Reason:Recurrent incisional hernia, Non-recurrent bilateral inguinal hernia withou Exam:[id number] CT/CT ABD/PEL W/O CONT ___ TECHNIQUE: CT of the abdomen and pelvis without IV contrast. Axial images from the lung bases to the upper thighs were performed. Sagittal and coronal reformats were performed. RADIATION DOSE TECHNIQUE: Automated exposure control CTDIvol 20mGy DLP 1074mGY.cm COMPARISON: None. FINDINGS: Limitations: Lack of IV contrast limits evaluation for pathologies such as inflammation, infection, neoplasm, or vascular abnormalities.Mild motion artifact. Lung bases: The lung bases appear clear. Heart: Mild cardiomegaly. Severe coronary artery calcifications of the visualized LAD. Small pericardial effusion. Liver: Normal. Gallbladder and bile ducts: Cholecystectomy. Mild post cholecystectomy ductal ectasia. Spleen: Normal. Pancreas: Normal. Adrenal glands: There is thickening of both adrenal glands which is nonspecific but often adenomatous. Kidneys: No renal calculus or hydronephrosis. Urinary bladder: Tiny focus of gas in the anterior urinary bladder image 121 series 201. Reproductive: Hysterectomy. Bowel: There is diverticulosis noted in the colon but no convincing evidence of diverticulitis. Mild dilatation of loops of small bowel in the left lower quadrant that measure up to 2.9 cm. Appendix: The appendix appears normal. Vessels: There is a severely atherosclerotic but normal caliber abdominal aorta. Mesentery/Peritoneum: No free air or significant ascites. Lymph nodes: No pathologic adenopathy. Bones: Severe degenerative change at the pubic symphysis. Mild leftward curvature of the lumbar spine. Moderate to severe degenerative disc disease at L5-S1 with vacuum disc phenomena. Other: Ventral hernia repair with mesh. There is a large collection along the inner margin of the mesh which has Hounsfield units values of about 12. This collection measures about 22 cm craniocaudal and about 17.9 cm medial-lateral and about 8 cm AP image 77 series 201 and image 68 series 203. No significant surrounding fat stranding. There is a moderate left inguinal hernia containing fat and a loop of small bowel. See image 124 series 201. No hernia in the anterior body wall in the location of the mesh. Small fat containing left spigelian hernia with the hernia sac measuring about 3.1 cm medial-lateral and 1.5 cm AP image 80 series 201. IMPRESSION: Ventral hernia repair. There is a large near fluid attenuation collection deep to mesh with measurements as above. This likely represents a seroma but could represent a liquified hematoma. Abscess is less likely given lack of adjacent fat stranding. Small fat containing left spigelian hernia. Mildly dilated loop of small bowel in the left lower quadrant measuring up to 2.9 cm. This likely represents partial small-bowel obstruction from left inguinal hernia. Tiny focus of gas in the urinary bladder may be due to recent instrumentation or cystitis. Other findings as above. Signature: Electronically Signed by DULCE GARNETT MD at 31-Jul-2024 11:08:31 AM Electronically Dictated/Signed: 07/31/24 1108 by: DULCE GARNETT MD Transcribed by: ICR OPERATION RESEARCH ANALYST Reason For Referral Reason EVAL AND TREAT Diagnosis 1 Unilateral inguinal hernia, without obstruction or gangrene, not specified as recurrent (K40.90) Referring Provider First Name LUIS DANIEL Referring Provider Last Name EDNA Referring Provider Speciality Family [facility] Referred Organization [facility] Referred Provider POLLO SOUZA MD Referred Address [address] [place] [address],[place], [place],[address], Referred Provider Specialty General Surg elisa Clinical Notes [place] MCGUIRE [place] 07/11/2024 10:03:17 AM >APPT SCHEDULED July @ 11:15 Referral Priority Routine Medications Medication SIG (Take, Route, Frequency, Duration) Notes Start Date End Date Status oxyBUTYnin Chloride ER 10 MG Tablet Extended Release 24 Hour 1 tablet Orally Once a day Not-Taking Carvedilol 12.5 MG Tablet 1 tablet with food Orally Twice a day Active Lisinopril 10 MG Tablet 1 tablet Orally Once a day Active Social History Tobacco Use: Social History Observation Description Date Details (start date - stop date) Never Smoker NA - NA Social History Tobacco Use: Social Info Question Answer Notes Tobacco Control (Standard) Tobacco use: Nonsmoker Vital Signs Heart Rate 53 /min 08/14/2024 Temperature 98.0 degrees Fahrenheit 08/14/2024 Respiratory Rate 18 /min 08/14/2024 Oximetry 97 % 08/14/2024 Blood pressure diastolic 71 mm Hg 08/14/2024 Weight-kg 57.29 kg 08/14/2024 Height 64 in 08/14/2024 Blood pressure systolic 147 mm Hg 08/14/2024 Weight 126.3 lbs 08/14/2024 BMI 21.68 kg/m2 08/14/2024 Encounters Encounter Location Date Provider Diagnosis [facility] [address] [place] [address] [place] [address] 07/19/2024 POLLO SOUZA MD Bilateral recurrent inguinal hernia without obstruction or gangrene K40.21 [facility] [address] [place] [address] [place] [address] 08/14/2024 POLLO SOUZA MD Abdominal wall seroma, initial encounter S30.1XXA ; Recurrent incisional hernia K43.2 and Left inguinal hernia K40.90 [facility] [address] [facility] [address] [place] [address] [place] [address] 07/26/2024 POLLO SOUZA MD Recurrent incisional hernia K43.2 and Non-recurrent bilateral inguinal hernia without obstruction or gangrene K40.20 Assessments Encounter Date Diagnosis (ICD Code) Assessment Notes Treatment Notes Treatment Clinical Notes Section Notes 07/19/2024 Bilateral recurrent inguinal hernia without obstruction or gangrene (ICD-10 - K40.21) The patient is history and exam findings today are most consistent with bilateral recurrent inguinal hernias larger on the left. I am concerned on today's exam the hernia contents may be that of ascitic fluid.The hernia contents are reducible on examination today, and there was no indication for emergent surgical intervention. This will allow for time to further investigate her recent hospitalization. This recent hospitalization and history of removal of the abdominal fluid raises concern for ascites. I will request records from her recent hospitalization as well as any imaging studies that were performed. She will follow up with me once these records are available for review, and further surgical recommendations will follow. If cross-sectional imaging was not performed, she may also require CT scan abdomen and pelvis. The left lower quadrant bulge noted on exam may also indicate a small incisional hernia. This is unclear on examination, and I will evaluate further once CT scan images are available from there.In the interim, I did have a lengthy discussion with the patient and her [id number] regarding the natural history and pathophysiology of hernias along with the associated complications including gastrointestinal obstruction, incarceration, and strangulation. She is instructed to report to the emergency department immediately should any of these arise. 07/26/2024 Recurrent incisional hernia (ICD-10 - K43.2) 07/26/2024 Non-recurrent bilateral inguinal hernia without obstruction or gangrene (ICD-10 - K40.20) 08/14/2024 Recurrent incisional hernia (ICD-10 - K43.2) CT scan of the abdomen and pelvis also shows 2 areas of spigelian type hernia in the left lateral abdomen adjacent to the margin of the previously placed mesh, the more superior of these defects is very small and contains peritoneal fat. The more inferior of these defects is somewhat larger with an adjacent loop of bowel.This is likely the cause of the patient's ongoing symptoms with intermittent pain and bulging in the left lower quadrant.Ultimately, this could easily be achieved via open approach with implantation of the small mesh.I would not recommend moving forward with this procedure until the issue of the seroma is resolved. I am concerned about infection related to the seroma, and mesh placement with ongoing infection would be contraindicated.As such, a short course of watchful waiting will be undertaken.She is cautioned to avoid heavy lifting and straining. She is also cautioned of the signs and symptoms of gastrointestinal obstruction, incarceration, and strangulation related to this hernia. She is instructed to call or return to my office or to the emergency department immediately should any of these arise. 08/14/2024 Abdominal wall seroma, initial encounter (ICD-10 - S30.1XXA) CT scan of the abdomen and pelvis performed here at [facility] on 07/31/2024 is reviewed including independent review of the images of this study as well as review of the radiologist's report. This is also reviewed in comparison to the CT scan performed at the outside hospital. The patient has developed recurrence of a very large seroma on the peritoneal surface of her previously placed mesh. She has a very large hernia mesh covering nearly the entirety of her anterior abdominal wall.There were no signs of infection or gas within the seroma, but this does appear to have recurred since the prior CT scan. At the inferior most portion of the seroma, there is a surgical tack or staple within the mesh that is adjacent to the dome of the bladder. The etiology of the seroma is unclear, however, I am concerned about fistula to the bladder. This may indicate the seroma represents urinoma.As this has recurred after aspiration, I recommend percutaneous drain placement which can be performed by Interventional Radiology. This may best be achieved at the outside hospital were the initial aspiration was performed.Further studies on the aspirate fluid will be performed including culture an assessment for fluid creatinine.This may lead to additional workup to further elucidate the cause of this seroma.Further surgical management of the hernias outlined below we will be postponed until the seroma issue has been resolved. 08/14/2024 Left inguinal hernia (ICD-10 - K40.90) The patient also has evidence of a left inguinal hernia containing a loop of nonobstructed bowel. This should also be repaired. I recommend a staged approach for this repair. This inguinal hernia will be the lowest on the priority list after surgical management of the seroma from the large ventral mesh and repair of the spigelian type incisional hernias in the left abdomen.Given her prior history of multiple surgeries, this can best be achieved via open approach. Timing for this will be addressed at future visit after the other issues are addressed. In the interim, as above, she has again cautioned to avoid prolonged heavy lifting and straining. She is also cautioned of the signs and symptoms of inguinal hernia related complications including gastrointestinal obstruction, incarceration, and strangulation. She is instructed to report to my office or to the emergency department immediately should any of these arise. 07/19/2024 Other Thank you for t he opportunity to participate in the care of this pleasant patient. Please call with any questions. 08/14/2024 Other Thank you for t he opportunity to participate in the care of this pleasant patient. Please call with any questions. Plan Of Treatment No Information Insurance Providers Payer Name Payer Address Payer Phone Subscriber Number Group Number Insured Name Patient Relationship to Insured Coverage Start Date Coverage End Date [facility] [address] [address] [place] [address] [id number] DEBORA ZAVALA Self - patient is the insured MEDICAID [address] [place], [place] [id number] [phone] [id number] DEBORA ZAVALA Self - patient is the insured 4 Medical (General) History Medical History History ICD Code Hypertension Overactive bladder Surgical History Surgery Date(Month/Year) Hernia repair X 9 Heart Stent placement X 2 Open Cholcystectomy Bladder Lift Hospitalization History Reason Date(Month/Year) Above procedure
--- OUTSIDE RECORDS SUMMARY | 2025-03-21 18:58 | XMS_ITS | Patient Health Record ---
Author Organization [facility] Address [address] [place], [place] [id number] Care Team Providers Care Laundry Room Attendant Name Role Phone Rex Packer Primary Care Provider Debbi Tomlinson Unavailable [phone] Allergies No Known Allergies Reason For Referral No Information Medications Medication SIG (Take, Route, Frequency, Duration) Notes Start Date End Date Status Cephalexin 500 MG 1 capsule Orally twi ce a day; Duration: 90 days 10/23/2024 Not-Takin g Carvedilol 3.125 MG Oral; Duration: 30 Days Active Vitamin B12 3000 MCG/ML as directed Sublingual Active Vitamin E 400 UNIT 1 capsule Orally Onc e a day 10/23/2024 Active Probiotic 250 MG as directed Orally 10/23/2024 Active Omeprazole 20 MG TAKE 1 TABLET EVERY DAY BY ORAL ROUTE FOR 100 DAYS. Oral; Duration: 30 Days Active Ondansetron 4 MG Oral; Duration: 5 Days Active Social History Tobacco Use: Social History Observation Description Date Details (start date - stop date) Never Smoker NA - NA Smoking Question Answer Notes Status nonsmoker Alcohol Screen Question Answer Notes Did you have a drink containing alcohol in the p ast year? 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 Vital Signs Heart Rate 75 /min 10/23/2024 O2-98 Casey Mahoney MA Temperature 98 degrees Fahrenheit 12/11/2024 Blood pressure diastolic 93 mm Hg 12/11/2024 Blood pressure systolic 163 mm Hg 12/11/2024 Weight 120 lbs 10/23/2024 O2-98 Casey Mahoney MA Encounters Encounter Location Date Provider Diagnosis [facility] [place] [address] 10/23/2024 Gemma Mary Local infection of t he skin and subcutaneous tissue, unspecified L08.9 ; 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 [address] [place] [address] 10/18/2024 Gemma Mary Assessments Encounter Date Diagnosis (ICD Code) Assessment Notes Treatment Notes Treatment Clinical Notes Section Notes 10/23/2024 Local infection of the skin and subcutaneous tissue, unspecified (ICD-10 - L08.9) 1. Intra-abdominal fluid collection with suspected infected mesh - Patient underwent two recent drainage procedures - First drainage in September grew Staphylococcus aureus - Second drainage on October 15 showed no bacterial growth, Microscopy: Elevated white blood cell count - Concern for persistent infection due to persistent reaccumulation of fluid. - Discontinue IV antibiotics and remove PICC line today - Initiate oral antibiotic suppression therapy (Keflex) for at least one year - Follow up with Dr. Marlow on October 30 to discuss ongoing management - Scheduled for regular drainage procedures every 4-6 weeks 2. Tinnitus/Headache - Patient reports ongoing ear blockage, ringing, and headache that started while on antibiotics; symptoms haven't resolved with discontinuation of ABT. - Physical examination shows normal tympanic membranes - Monitor symptoms for improvement following antibiotic discontinuation - Reassess at follow-up appointment if symptoms persist Follow-up: - Dr. Marlow on October 30 - Infectious Disease follow-up in approximately 6 weeks - Obtain pre-clinic labs before next follow-up appointment in approximately 6 weeks - Provide patient with PICC line removal aftercare instructions - Encouraged patient to call or return to the clinic if new or worsening symptoms arise 10/23/2024 Colonization with MSSA (methicillin-susc eptible Staphylococcus aureus) (ICD-10 - Z22.321) 1. Intra-abdominal fluid collection with suspected infected mesh - Patient underwent two recent drainage procedures - First drainage in September grew Staphylococcus aureus - Second drainage on October 15 showed no bacterial growth, Microscopy: Elevated white blood cell count - Concern for persistent infection due to persistent reaccumulation of fluid. - Discontinue IV antibiotics and remove PICC line today - Initiate oral antibiotic suppression therapy (Keflex) for at least one year - Follow up with Dr. Marlow on October 30 to discuss ongoing management - Scheduled for regular drainage procedures every 4-6 weeks 2. Tinnitus/Headache - Patient reports ongoing ear blockage, ringing, and headache that started while on antibiotics; symptoms haven't resolved with discontinuation of ABT. - Physical examination shows normal tympanic membranes - Monitor symptoms for improvement following antibiotic discontinuation - Reassess at follow-up appointment if symptoms persist Follow-up: - Dr. Marlow on October 30 - Infectious Disease follow-up in approximately 6 weeks - Obtain pre-clinic labs before next follow-up appointment in approximately 6 weeks - Provide patient with PICC line removal aftercare instructions - Encouraged patient to call or return to the clinic if new or worsening symptoms arise 12/11/2024 Local infection of the skin and subcutaneous tissue, unspecified (ICD-10 - L08.9) Assessment and Plan: 1. Recurrent Abdominal Fluid Collection - Patient has undergoin multiple drainage for reaccumulation of fluid. concern that mesh is infected with MSSA. The was explained to patient and daughter - Competed 6 weeks of cefazolin - prescribed keflex for suppression, patient declined treatment - Follow up with surgeon (Dr. Marlow) for ongoing management of abdominal fluid collection - Monitor for signs of infection (fever, chills) - Patient/family instructed to contact Infectious Disease department if concerns about recurrent infection arise Follow-up: - Surgeon follow-up with Dr. Marlow for ongoing management - Contact Infectious Disease department if concerns about recurrent infection arise - Encouraged patient to call or return to the clinic if new or worsening symptoms arise 12/11/2024 Methicillin susceptible Staphylococcus aureus infection, unspecified site (ICD-10 - A49.01) Assessment and Plan: 1. Recurrent Abdominal Fluid Collection - Patient has undergoin multiple drainage for reaccumulation of fluid. concern that mesh is infected with MSSA. The was explained to patient and daughter - Competed 6 weeks of cefazolin - prescribed keflex for suppression, patient declined treatment - Follow up with surgeon (Dr. Marlow) for ongoing management of abdominal fluid collection - Monitor for signs of infection (fever, chills) - Patient/family instructed to contact Infectious Disease department if concerns about recurrent infection arise Follow-up: - Surgeon follow-up with Dr. Marlow for ongoing management - Contact Infectious Disease department if concerns about recurrent infection arise - Encouraged patient to call or return to the clinic if new or worsening symptoms arise 12/11/2024 Frail elderly (ICD-10 - R54) Assessment and Plan: 1. Recurrent Abdominal Fluid Collection - Patient has undergoin multiple drainage for reaccumulation of fluid. concern that mesh is infected with MSSA. The was explained to patient and daughter - Competed 6 weeks of cefazolin - prescribed keflex for suppression, patient declined treatment - Follow up with surgeon (Dr. Marlow) for ongoing management of abdominal fluid collection - Monitor for signs of infection (fever, chills) - Patient/family instructed to contact Infectious Disease department if concerns about recurrent infection arise Follow-up: - Surgeon follow-up with Dr. Marlow for ongoing management - Contact Infectious Disease department if concerns about recurrent infection arise - Encouraged patient to call or return to the clinic if new or worsening symptoms arise 10/23/2024 Frail elderly (ICD-10 - R54) 1. Intra-abdominal fluid collection with suspected infected mesh - Patient underwent two recent drainage procedures - First drainage in September grew Staphylococcus aureus - Second drainage on October 15 showed no bacterial growth, Microscopy: Elevated white blood cell count - Concern for persistent infection due to persistent reaccumulation of fluid. - Discontinue IV antibiotics and remove PICC line today - Initiate oral antibiotic suppression therapy (Keflex) for at least one year - Follow up with Dr. Marlow on October 30 to discuss ongoing management - Scheduled for regular drainage procedures every 4-6 weeks 2. Tinnitus/Headache - Patient reports ongoing ear blockage, ringing, and headache that started while on antibiotics; symptoms haven't resolved with discontinuation of ABT. - Physical examination shows normal tympanic membranes - Monitor symptoms for improvement following antibiotic discontinuation - Reassess at follow-up appointment if symptoms persist Follow-up: - Dr. Marlow on October 30 - Infectious Disease follow-up in approximately 6 weeks - Obtain pre-clinic labs before next follow-up appointment in approximately 6 weeks - Provide patient with PICC line removal aftercare instructions - Encouraged patient to call or return to the clinic if new or worsening symptoms arise 10/10/2024 1. Intra-abdominal loculated fluid collection + [...] with associated nausea. Improving. Plan Of Treatment Future Test Test Name Order Date BASIC METABOLIC PANEL (Q) 12/03/2024 C-REACTIVE PROTEIN (Q) 12/03/2024 CBC (INCLUDES DIFF/PLT) (Q) 12/03/2024 SED RATE BY MODIFIED WESTERGREN (Q) 04/2024 Insurance Providers Payer Name Payer Address Payer Phone Subscriber Number Group Number Insured Name Patient Relationship to Insured Coverage Start Date Coverage End Date MEDICARE [employer] [address] [address] [place] [address] [phone] [id number] DEBORA ZAVALA Self - patient is the insured MEDICAID [address] [place], [place] [id number] DEBORA ZAVALA Self - patient is the insured Medical (General) History Medical History History ICD Code Hypertension Surgical History Surgery Date(Month/Year) Hypertension Cardiac stents CHOLECYSTECTOMY Hospitalization History Reason Date(Month/Year) as above
== END 2025-03-21 16:00 | disposition home or self-care (01) ==
LOC: HO.HMCFMS 14:52
PROVIDERS: PCP Internal Medicine; Visit Provider Student in an Organized Health Care Education/Training Program
DX: F41.9 Anxiety disorder, unspecified (principal); Z95.5 Presence of coronary angioplasty implant and graft; I12.9 Hypertensive chronic kidney disease with stage 1 through stage 4 chronic kidney disease, or unspecified chronic kidney disease; S30.11XA Contusion of abdominal wall, initial encounter; K64.9 Unspecified hemorrhoids; Z99.89 Dependence on other enabling machines and devices; R41.89 Other symptoms and signs involving cognitive functions and awareness; R79.89 Other specified abnormal findings of blood chemistry; I25.10 Atherosclerotic heart disease of native coronary artery without angina pectoris; I70.90 Unspecified atherosclerosis; M85.80 Other specified disorders of bone density and structure, unspecified site; N18.9 Chronic kidney disease, unspecified; N39.46 Mixed incontinence

== ENCOUNTER → 2025-03-21 14:51 | Outpatient (BNVA) | payer MEDICARE, SELFPAY | PROVIDERS: PCP Internal Medicine; Visit Provider Student in an Organized Health Care Education/Training Program | DX: Z71.2 Person consulting for explanation of examination or test findings (principal); I25.10 Atherosclerotic heart disease of native coronary artery without angina pectoris; N18.9 Chronic kidney disease, unspecified; N39.46 Mixed incontinence; I70.90 Unspecified atherosclerosis; R79.89 Other specified abnormal findings of blood chemistry; R41.89 Other symptoms and signs involving cognitive functions and awareness; Z99.89 Dependence on other enabling machines and devices; K64.9 Unspecified hemorrhoids; S30.11XD Contusion of abdominal wall, subsequent encounter; Z95.5 Presence of coronary angioplasty implant and graft; F41.9 Anxiety disorder, unspecified | CPT/HCPCS: 99212 ==

== ENCOUNTER 2025-03-27 07:47 | Outpatient (AMB) | payer MEDICARE, SELFPAY ==
--- OUTSIDE RECORDS SUMMARY | 2023-11-02 10:30 | XMS_ITS ---
Author Organization [facility] Address [address] [place] [address] Care Team Providers Care Storeroom Clerk Name Role Phone Hannah MIGUEL, Rebel Primary Care Provider U David Callahan Unavailable [phone] Encounters Encounter [facility] [address] 11/02/2023 David Cook Plan Of Treatment No Information Progress Notes * Cindy RICHDOB:1945 (79 yo F)Acc No.[id number]:11/02/2023 Progress Note Patient: Cindy VIERA Provider: Gretchen Cook DPM :1945 A ge:78 Y S ex:Female Date:11/02/2023 Address:[address] [place] [phone] Pcp:Rebel Young MD Subjective: * Chief Complaints: [...] DPM Date: 0 11/02/2023 Generated for Loci jyothi/Nagi/eTransmelena on: 05/28/2024 07:50 AM EST
--- OUTSIDE RECORDS SUMMARY | 2023-12-07 10:30 | XMS_ITS ---
Author Organization [facility] Address [address] [place] [address] Care Team Providers Care Building Maintenance Engineer Name Role Phone Hannah MIGUEL, Rebel Primary Care Provider U David Callahan Unavailable [phone] Encounters Encounter Location Date [facility] [address] 12/07/2023 David Cook Plan Of Treatment No Information Progress Notes * Cindy RICHDOB:1945 (79 yo F)Acc No.[id number]:12/07/2023 Progress Note Patient: Cindy VIERA Provider: Gretchen Cook DPM :1945 A ge:78 Y S ex:Female Date:12/07/2023 Address:[address] [place] [phone] Pcp:Rebel Young MD Subjective: * Chief Complaints: * * Medical History: Objective: * Vitals: Assessment: Plan: * Treatment: * Images: * The named appointment provid er may or may not be the originator of this progress note, and it is not deemed complete until electronically signed by the appointment provider. Sign off status: Pending * Provider: Grtechen Cook DPM Date: 0 12/07/2023 Generated for Loci jyothi/Nagi/eTmariasmelena on: 05/28/2024 07:50 AM EST
--- OUTSIDE RECORDS SUMMARY | 2024-09-13 06:30 | XMS_ITS ---
Author Organization [facility] Address [address] [place] [phone] Care Team Providers Care Financial Analysis Advisor Name Role Phone LUIS DANIEL BISHOP Primary Care Provider Kat NULL MD, POLLO Unavailable REASON FOR VISIT US FLUID CAT W/ IMAGING Encounters Encounter Location Date Provider Diagnosis [facility] [address] [place] [address] [place] [address] 09/13/2024 POLLO NULL MD Plan Of Treatment No Information Progress Notes * DEBORA ZAVALADOB:1945 (79 yo F)Acc No.[id number]:09/13/2024 Progress Notes Patient: DEBORA VIERA Provider: Bebe Null M.D. :1945 A ge:79 Y S ex:Female Date:09/13/2024 Address:[address] [facility] [address] [place], [place] [phone] Pcp:LUIS DANIEL BISHOP Subjective: * Chief Complaints: * U S FLUID CAT W/ IMAGING Billing Information: * Procedure Codes: * Electronic signature of PRES ELIZABETH NULL MD on 03/27/2025 at 06:49 AM SUPERVISOR FUNCTIONAL TESTING Sign off status: Pending * Provider: Bebe Null M.D. Date: 0 09/13/2024 Generated for Loci ng/Faxing/eTransmitting on: 1 05/28/2024 06:49 AM SUPERVISOR FUNCTIONAL TESTING
--- OUTSIDE RECORDS SUMMARY | 2024-10-10 10:30 | XMS_ITS ---
Author Organization [facility] Address [address] [place], [place] [phone] Care Team Providers Care Tractor Expert Name Role Phone DionicioRex real Primary Care Provider Debbi Tomlinson Unavailable [phone] REASON FOR VISIT CRS follow up, MSSA in abdominal drain, intra-abdominal fluid collection Social History Tobacco Use: Social History Observation Description Date Details (start date - stop date) Never Smoker NA - NA Smoking Question Answer Notes Status nonsmoker Alcohol Screen Question Answer Notes Did you have a drink containing alcohol in the p ast year? No Points 0 Interpretation Negative Encounters Encounter Location Date Provider Diagnosis [facility] [address] [facility] [address] [place] [address] 10/10/2024 Debbi Hernandez Assessments Encounter Date Diagnosis (ICD Code) Assessment Notes Treatment Notes Treatment Clinical Notes Section Notes 10/10/2024 1. Intra-abdominal loculated fluid collection + MSSA - DOMINIC drain placed through surgical mesh on 08/28/2024 to drain seroma. - Approximately 6/3 DOMINIC drain removed. Cultures grew out MSSA. 2. Acute enteritis. Noted on CT. Stool panel ordered but does not appear it was collected. Recommend obtaining stool sample for testing. Patient reports 5 small loose stools today. 3. Ileus. On bowel regimen. Improving. 4. Abdominal pain with associated nausea. Improving. Plan Of Treatment No Information Progress Notes * DEBORA ZAVAALDOB:1945 (79 yo F)Acc No.[id number]:10/10/2024 Progress Notes Patient: DEBORA VIERA Provider: Augusta Hernandez MD :1945 A ge:79 Y S ex:Female Date:10/10/2024 Address:[address] [place], [place] [address], [address], [facility] Pcp:Rex Packer Subjective: * Chief Complaints: * 1 . CRS follow up. 2. MSSA in abdominal drain, intra-abdominal fluid collection. * HPI: : Patient is a 79-year-old female with hypertension who was admitted 09/04-09/11/2024 with? I ntra-abdominal loculated fluid collection with cultures positive for MSSA associated with a ventral wall mesh, acute enteritis, SBO, and Ileus. Patient had a DOMINIC drain placed through surgical mesh on 08/28/2024. Cultures at that time were negative and the patient was discharged home. Patient then presented with abd pain and elevated lactic. C T abdomen pelvis on 09/04/2024 showed pigtail drainage catheter in place with significant decrease in size of loculated fluid collection in the anterior peritoneal cavity suspicion for acute enteritis with developing small bowel obstruction was also noted along with thickening of the esophagus extending into the stomach.She was evaluated by general surgery who was concerned about an infection to the mesh that her drain was placed through. It was felt that removing the drain would be the best option. Cultures were obtained from the drain which grew out Staphylococcus aureus. She was DC'd on 4-6 weeks of IV antibiotics with cefazolin followed by oral suppression given retained mesh in place. * ROS: A ll other review of systems negative except per HPI. * Medical History: H ypertension. * Surgical History: H ypertension , Cardiac stents , CHOLECYSTECTOMY . * Hospitalization/Major Diagno stic Procedure: a s above . * Social History: T obacco Use: S moking S tatus n onsmoker D rugs/Alcohol: A lcohol Screen D id you have a drink containing alcohol in the past year? N o P oints 0 I nterpretation N egative Objective: * Vitals: * Examination: G eneral Examination: GENERAL APPEARANCE: Alert and oriented x3, in no apparent distress. HEAD: normocephalic, atraumatic. EYES: e xtraocular movement intact (EOMI). ORAL CAVITY: mucous membranes moist. NECK/THYROID: neck supple, full range of motion. SKIN: no rashes, warm and dry. HEART: regular rate and rhythm. LUNGS: breathing unlabored, clear to auscultation bilaterally, good air movement. ABDOMEN: soft, nontender, nondistended, bowel sounds present. EXTREMITIES: n o clubbing, cyanosis, or edema. NEUROLOGIC: n o obvious neurological deficits. ? Assessment: * Assessment: 1. Intra-abdominal loculated fluid collection + MSSA - DOMINIC drain placed through surgical mesh on 08/28/2024 to drain seroma. - Approximately /3 DOMINIC drain removed. Cultures grew out MSSA. 2. Acute enteritis. Noted on CT. Stool panel ordered but does not appear it was collected. Recommend obtaining stool sample for testing. Patient reports 5 small loose stools today. 3. Ileus. On bowel regimen. Improving. 4. Abdominal pain with associated nausea. Improving. Plan: * Treatment: * Images: * Electronic signature of Bhavin Hernandez MD on 03/27/2025 at 06:50 AM BID CLERK Sign off status: Pending * Provider: Augusta Hernandez MD Date: 0 10/10/2024 Generated for Aman roe/Nagi/Arielaitting on: 1 05/28/2024 06:50 AM BID CLERK History and Physical Notes * HPI (History of Present Illness) Category Sub-Category Detail Notes Category Not es Patient is a 79 -year-old female with hypertension who was admitted 09/04-09/11/2024 with Intra-abdominal loculated fluid collection with cultures positive for MSSA associated with a ventral wall mesh, acute enteritis, SBO, and Ileus. Patient had a DOMINIC drain placed through surgical mesh on 08/28/2024. Cultures at that time were negative and the patient was discharged home. Patient then presented with abd pain and elevated lactic. CT abdomen pelvis on 09/04/2024 showed pigtail drainage catheter in place with significant decrease in size of loculated fluid collection in the anterior peritoneal cavity suspicion for acute enteritis with developing small bowel obstruction was also noted along with thickening of the esophagus extending into the stomach.She was evaluated by general surgery who was concerned about an infection to the mesh that her drain was placed through. It was felt that removing the drain would be the best option. Cultures were obtained from the drain which grew out Staphylococcus aureus. She was DC'd on 4-6 weeks of IV antibiotics with cefazolin followed by oral suppression given retained mesh in place. Examination Category Sub-Category Detail Notes Category Not es General Examination GENERAL APPEARANCE: Alert an d oriented x3, in no apparent distress HEAD: normocephalic, atrau matic EYES: extraocular movement intact (EOMI) NECK/THYROID: neck supple, full ra nge of motion HEART: regular rate and rhy thm LUNGS: breathing unlabored, clear to auscultation bilaterally, good air movement ABDOMEN: soft, nontender, non distended, bowel sounds present NEUROLOGIC: no obvious neurologi shelly deficits SKIN: no rashes, warm and dry EXTREMITIES: no clubbing, cyanosi s, or edema ORAL CAVITY: mucous membranes [address]
--- OUTSIDE RECORDS SUMMARY | 2025-03-21 23:59 | XMS_ITS | Continuity of Care Document ---
Author Organization [address] [place] [address]- Care Team Providers Care Marketing Strategy Analyst Name Role Phone Not on Staff, PCP Primary Care Physician Unavail able Encounter [facility] Date(s): 02/19/25 - 03/21/[address] [place] [address]- Encounter Type: Triage Allergies, Adverse Reactions, Alerts [...] 11 Refills, Maintenance, 09/29/22 4:50:00 PM EDT, [id number], Partial fill upon patient request if the [...] 1:29:00 PM EDT, Route to Pharmacy Electronically, [facility][id number], Partial fill upon patient request if the [...] 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 Hyperlipidemia Confirmed Active Hypertension [...] MRI Safety Implantable Status Assigning Authority Unknown [id number] Unknown 11/04/24 Unknown Unknown Active Unknown Patient Care team information Care Team Personnel Name: Lucio Rodgers RN Position: [facility] RN Member Role: Primary Care Nurse Name: Jonathan Li RN Position: [facility] RN Member Role: Primary Care Nurse Name: Not on Staff, PCP Position: [facility] Physician (General Medicine) Member Role: PCP Name: Alexis Hanks RN Position: [facility] RN Member Role: Primary Care Nurse Care Team Related Persons Name: JERMAINE BISWAS Name: DIEUDONNE CLINTON Name: DANELLE HEART Insurance Providers Guarantor name: DEBORA ZAVALA Health Plan Information #: 1 Payer: [facility] MCARE ADVANTAGE HMO Payer Identifier: NA Member Number: [id number] Group Number: GALLO Subscriber Identifier: GALLO Relationship to Subscriber: self Coverage Type: NA Coverage Verification Date: NA Telecom: NA Address: NA Health Plan Information #: 2 Payer: [facility] MCARE ADV Payer Identifier: NA Member Number: [id number] Group Number: Subscriber Identifier: GALLO Relationship to Subscriber: self Coverage Type: NA Coverage Verification Date: NA Telecom: NA Address: NA Health Plan Information #: 3 Payer: [facility] [employer] Payer Identifier: NA Member Number: [id number] Group Number: Subscriber Identifier: Relationship to Subscriber: self Coverage Type: MEDICAID Coverage Verification Date: NA Telecom: NA Address: NA Health Plan Information #: 4 Payer: MEDICAID OUTOF STATE Payer Identifier: NA Member Number: [id number] Group Number: Subscriber Identifier: Relationship to Subscriber: self Coverage Type: MEDICAID Coverage Verification Date: NA Telecom: NA Address:
--- OUTSIDE RECORDS SUMMARY | 2025-03-22 10:50 | XMS_ITS | Continuity of Care Document ---
Author Organization [facility] ter Address [address] [place] [address]- Care Team Providers Care Agent Spa Desk Name Role Phone Not on Staff, PCP Primary Care Physician Unavail able Encounter [facility] Date(s): 03/22/25 - 03/22/[address] [address]- Discharge Disposition: A-D/C Home Attending Physician: Amy Canas MD Admitting Physician: Amy Canas MD Referring Physician: Amy Canas MD Encounter Type: Disch Daystay Allergies, Adverse Reactions, Alerts No Known Allergies Medications carvedilol 3.125 mg oral tablet See Instructions, 1 tablet By Mouth 2 times a day depending on BP, Refills 0, Maintenance, 257:37:00 AM EST, Instructions Replace Required Details, Partial [...] 11 Refills, Maintenance, 09/29/22 4:50:00 PM EDT, [facility][id number], Partial fill upon patient request if the [...] 1:29:00 PM EDT, Route to Pharmacy Electronically, [facility][id number], Partial fill upon patient request if the [...] 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 Hyperlipidemia Confirmed Active Hypertension Confirmed Active Cystocele, midline Confirmed Active Nocturia Confirmed Active Overactive bladder Confirmed Active Paroxysmal A-fib Confirmed Active Urethral hypermobility Confirmed Active Results Radiology Reports * Exam Date Time Procedure Performing Provider Status 03/22/25 9:58 AM IR End of Case Report Au th (Verified) IR End of Case Report * Exam Date Time Procedure Performing Provider Status 03/22/25 9:[address] Guidance Needle Biopsy Auth (Verified) Notes: (CT Guidance Needle Biopsy) Reason For Exam: FLUID BRONSON/ABSCESS/SEROMA CT Guidance Needle Biopsy Patient: DEBORA ZAVALA Study Date: 03/22/2025 Performing: Tigre Ortiz MD Referring: Dr. Amy Canas : 1945 Age: 79 Gender: FEMALE PROCEDURE: CT guided drainage of abdominal seroma. INDICATION: Ventral hernia repair with mesh complicated by recurrent seroma deep to mesh. MACHINE SILVER STRIPPER(S): Tigre Ortiz MD ANESTHESIA: Lidocaine was administered for local anesthesia. TECHNIQUE: A limited CT scan of the abdomen was performed using automatic tube current modulation to optimize dose parameters. A suitable access site was identified, marked, prepped, and draped in standard fashion. Using intermittent CT guidance, a 19-gauge introducer needle was advanced into the collection. A curved 5 Fr Yueh centesis needle was advanced under the mesh into the collection. A total of 300cc of zeb colored fluid was evacuated using Vacutainer bottles. A post drainage scan was obtained. No specimens or samples were sent for this procedure COMPLICATIONS: The patient tolerated the procedure well and in stable condition. There were no immediate complications. FINDINGS: Seroma beneath the mesh appears smaller than on the most recent drainage on 03/01/2025. A total of 300 cc was able to be drained. The posttreatment scan demonstrates some residual seroma with pockets of gas suspended in the dependent aspects of the fluid in keeping with loculations. PLAN: Routine post procedure monitoring. Patient seen Dr. García following this procedure and consult to discuss future drainage/sclerosis. If the collection is loculated, guidewire fenestration may help optimize drainage during future interventions. IMPRESSION: CT-guided aspiration of 300 cc of fluid from an abdominal wall seroma deep to mesh. Signed By Tigre Ortiz MD On 03/22/2025 12:26:36 PM Signed By Tigre Ortiz MD On 03/22/2025 12:26:36 PM Tigre Ortiz MD Equipment : [employer] Biopsy tray Mario MASON 19 X 10 Dictated By: Tigre Ortiz MD Dictated Date/Time: 03/22/25 9:58 am Reviewed By: Tigre Ortiz MD Signed By: Tigre Ortiz MD Signed Date/Time: 03/22/25 9:58 am Transcribed By: JOANNE Transcribed Date/Time: 03/22/25 9:58 am Vital Signs Most recent to oldest [Reference Range]: 1 Oxygen Saturation [94-100 %] 99 % (03/22/25 8:09 AM) Pulse Rate [55-90 bpm] 57 bpm (03/22/25 8:09 AM) Blood Pressure [90-138/55-84 mm Hg] 160/ 61mm Hg *H* (03/22/25 8:09 AM) Respiratory Rate [16-30 br/min] 18 br/mi n (03/22/25 8:09 AM) Temperature [96.8-100.4 DegF] 97.0 DegF (03/22/25 8:09 AM) Mode of Delivery (Oxygen) Room air (03/22/25 8:09 AM) Blood pressure sites Arm, right (03/22/25 8:09 AM) Temperature Route Temporal (03/22/25 8:09 AM) Dry Weight 52.27 kg (03/22/25 8:16 AM) Social History Social History Type Response Smoking Status Never smoker entered on: 12/26/13 Sex Sex Representation Female (finding) Implantable Device List Procedure Provider Procedure Date Device Type Site Colpocleisis Vagina Kylee Vigil MD 09/06/22 Unknown Urethra Device Identifier Serial Number Lot or Batch Number Manufacturing Date Expiration Date Distinct Identification Code MRI Safety Implantable Status Assigning Authority Unknown [id number] 11-02 [id number] 4 Unknown 11/04/24 Unknown Unknown Active Unknown Hospital Progress note * Salma Palm RN: MODIFY, SIGN, MODIFY, SIGN, PERFORM, SIGN, VERIFY, MODIFY, SIGN Event Display: Progress Note Hospital Authored Date: [id number] Patient: DEBORA ZAVALA Age: 79 years Sex: Female : 1945 Associated Diagnoses: None Author: Salma Palm RN Findings Nursing Data IV Lines. : IV Lines. 03/22/2025 10:00 EST Right Forearm 22 gauge Peripheral IV Activity: Discontinue Peripheral IV Assess Compare Touch: A/C/T Done, line D/C'd and or pt discharged Peripheral IV D/C Date/Time: 03/22/2025 10:35 Peripheral IV D/C Reason: Discontinued treatment complete Peripheral IV Post-Removal: Catheter tip intact, Dry sterile dressing applied 03/22/2025 8:00 EST Right Forearm 22 gauge Peripheral IV Activity: Start Peripheral IV Insertion Date/Time: 03/22/2025 8:40 Peripheral IV Number of Attempts: 1 Peripheral IV Site Assessment: Flushes Well, Good Blood return Peripheral IV Site Drainage: None Peripheral IV Dressing: Clean, dry and intact, Semi-permeable membrane . Vital Signs : VITAL SIGNS SECTION 03/22/2025 8:09 EST Temperature 97.0 DegF Temperature Route Temporal Pulse Rate 57 bpm Respiratory Rate 18 br/min Systolic Blood Pressure 160 mm Hg H Diastolic Blood Pressure 61 mm Hg Blood pressure sites Arm, right Mean Arterial Pressure 94 mm Hg Pulse Pressure 99 mm Hg Oxygen Saturation 99 % Mode of Delivery (Oxygen) Room air . Narrative/Incidental 0800 Recurring Ukranian speaking Pt. admitted to Procedural Care unit for an abdominal drainage procedure. Vital signs stable. Per daughter Pt. ate 4 prunes and drank 2 ounces of prune juice this morning at 0700. CT notified and is aware. Pt. alert and oriented x 2 to person and placel. Per daughter Pt. has periods of confusion. Daughter is HCP and brought HCP form from home, copy made for scanning. Home medication review, Rec[facility] Medical Daystay form and Pre- Procedure check list completed. IV #22 placed right forearm. 1033 Pt returned to unit. Awake and alert. Bandaide to abdomen RUQ C/D/I. No hematoma noted. Deniesany pain or discomfort. Vital signs stable. Pt. discharged per Dr. Ortiz to make appointment scheduled with Dr. García at [facility] to discuss Sclerotherapy Treatment. 1050 Pt. discharged from unit via wheelchair to [facility] for transportation to scheduled appointment. . Electronically Signed on 03/22/25 08:52 AM Salma Palm RN Electronically Signed on 03/22/25 08:53 AM Salma Palm RN Electronically Signed on 03/22/25 11:20 AM Salma Palm RN Electronically Signed on 03/22/25 11:21 AM Salma Plam RN Note * Salma Palm RN: PERFORM Event Display: Discharge/Transfer Note Hospital Authored Date: [id number] Nursing Discharge Note Entered On: 03/22/2025 11:13 EST Performed On: 03/22/2025 11:11 EST by Salma Palm RN Nursing Discharge Note 2 Did Pt have Specialty Bed or Wound Vac : No Salma Palm RN - 03/22/2025 11:14 EST Discharge Level of Care at Discharge : Home/Jail/Foster Care Discharge Time : 03/22/2025 10:50 EST Oil Field Rig Builder Utilized : No Patient Left Unit Via : Wheelchair Patient Accompanied Off Unit with : Other: daughter DC Instructions Provided & Signed by Pt : No Patient Understands D/C Instructions : No Verbalization of Discharge Plan Comments : Discharge instructions reviewed with daughter (HCP). Pt A&Ox2 with periods of confusion Patient Instructions Discharge Signed : Yes Salma Palm RN - 03/22/2025 11:11 EST Electronically Signed on 03/22/25 11:11 AM Salma Palm RN Electronically Signed on 03/22/25 11:14 AM Salma Palm RN Patient Care team information Care Team Personnel Name: Lucio Rodgers RN Position: [facility] RN Member Role: Primary Care Nurse Name: Jonathan Li RN Position: [facility] RN Member Role: Primary Care Nurse Name: Not on Staff, PCP Position: [facility] Physician (General Medicine) Member Role: PCP Name: Alexis Hanks RN Position: S RN Member Role: Primary Care Nurse Care Team Related Persons Name: JERMAINE BISWAS Name: DIEUDONNE CLINTON Name: DANELLE HEART Insurance Providers Guarantor name: DEBORA ZAVALA Reelio Plan Information #: 1 Payer: [facility] OPT Payer Identifier: GALLO Member Number: [id number] Group Number: [id number] Subscriber Identifier: GALLO Relationship to Subscriber: self Coverage Type: Medicare Managed Care (Includes Medicare Advantage Plans) Coverage Verification Date: GALLO Telecom: NA Address: Health Plan Information #: 2 Payer: [employer] Payer Identifier: GALLO Member Number: [id number] Group Number: GALLO Subscriber Identifier: [id number] Relationship to Subscriber: self Coverage Type: MEDICAID Coverage Verification Date: GALLO Telecom: GALLO Address: NA
--- OUTSIDE RECORDS SUMMARY | 2025-03-24 23:59 | XMS_ITS | Continuity of Care Document ---
Author Organization [facility] ter Address [address] [place] [address]- Care Team Providers Care Drug Purchaser Name Role Phone Not on Staff, PCP Primary Care Physician Unavail able Encounter [facility] Date(s): 02/20/25 - 03/24/[address] [address]- Attending Physician: Amy Canas MD Admitting Physician: Amy Canas MD Referring Physician: Amy Canas MD Encounter Type: Preadmit Daystay Allergies, Adverse Reactions, Alerts No Known [...] 11 Refills, Maintenance, 09/29/22 4:50:00 PM EDT, [id number], Partial fill upon patient request if the [...] 1:29:00 PM EDT, Route to Pharmacy Electronically, [facility][id number], Partial fill upon patient request if the [...] 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 Hyperlipidemia Confirmed Active Hypertension [...] MRI Safety Implantable Status Assigning Authority Unknown [id number] Unknown 11/04/24 Unknown Unknown Active Unknown Patient Care team information Care Team Personnel Name: Lucio Rodgers RN Position: [place] RN Member Role: Primary Care Nurse Name: Jonathan Li RN Position: [facility] SN RN Member Role: Primary Care Nurse Name: Not on Staff, PCP Position: [facility] Physician (General Medicine) Member Role: PCP Name: Alexis Hanks RN Position: [facility] RN Member Role: Primary Care Nurse Care Team Related Persons Name: JERMAINE BISWAS Name: DIEUDONNE CLINTON Name: UNAPAOLAA Insurance Providers Guarantor name: DEBORA Corso12 Plan Information #: 1 Payer: [facility] Payer Identifier: NA Member Number: [id number] Group Number: [id number] Subscriber Identifier: NA Relationship to Subscriber: self Coverage Type: Medicare Managed Care (Includes Medicare Advantage Plans) Coverage Verification Date: Telecom: Address: [facility] Information #: 2 Payer: [facility] Payer Identifier: NA Member Number: [id number] Group Number: [id number] Subscriber Identifier: NA Relationship to Subscriber: self Coverage Type: MEDICAID Coverage Verification Date: Telecom: Address:
--- OUTSIDE RECORDS SUMMARY | 2025-03-27 07:50 | XMS_ITS | Patient Health Record ---
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 Vital Signs Heart Rate 75 /min 10/23/2024 O2-98 Casey Mahoney MA Temperature 98 degrees Fahrenheit 12/11/2024 Blood pressure diastolic 93 mm Hg 12/11/2024 Blood pressure systolic 163 mm Hg 12/11/2024 Weight 120 lbs 10/23/2024 O2-98 Casey Mahoney MA Encounters Encounter Location Date Provider Diagnosis [facility] [place] [address] 10/23/2024 Gemma Mary Local infection of t he skin and subcutaneous tissue, unspecified L08.9 ; 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) Z22.321 and Frail elderly R54 [facility] [address] [place] [id number] 12/11/2024 Gemma Mary Local infection of t he skin and subcutaneous tissue, unspecified L08.9 ; Methicillin susceptible Staphylococcus aureus infection, unspecified site A49.01 and Frail elderly R54 [facility] [place] [address] 09/19/2024 Gemma Mary [facility] [address] [facility] [address] [place] [address] 10/18/2024 Gemma Mary Assessments Encounter Date Diagnosis [...] Coverage End Date MEDICARE [employer] [address] [address] [place] [address] [phone] [id number] DEBORA ZAVALA Self - patient is the insured MEDICAID [address] [place], [place] [id number] DEBORA ZAVALA Self - patient is the insured Medical (General) History Medical History History ICD Code Hypertension Surgical History Surgery Date(Month/Year) Hypertension Cardiac stents CHOLECYSTECTOMY Hospitalization History Reason Date(Month/Year) as above
--- OUTSIDE RECORDS SUMMARY | 2025-03-27 07:50 | XMS_ITS | Patient Health Record ---
Author Organization [facility] Address [address] [place] [address] Care Team Providers Care Editor In Chief Name Role Phone Hannah MIGUEL, [facility] Primary Care Provider U nguyen David Cook Unavailable [phone] Allergies No Known Allergies Reason For Referral No Information Medications Medication SIG (Take, Route, Frequency, Duration) Notes Start Date End Date Status Pantoprazole Sodium Not-Taking Vitamin B-12 1000 MCG Oral; Duration: 30 Active Vitamin D3 Not-Takin g Vitamin D (Ergocalciferol) 98027 UNIT Oral; Duration: 42 Active zzzCompression Stockings [...] Problem Acquired hammer toe of right foot (4283507125328135 ) Other hammer toe(s) (acquired), right foot (M20.41) Active confirmed Response to treatment, Improvemen t Problem Acquired hammer toe of left foot (4855369928599419 ) Other hammer toe(s) (acquired), left foot (M20.42) Active confirmed Response to treatment, Improvemen t Problem Bilateral atherosclerosis of arteries of lower limbs (disorder) (4210905733745446 7) Atherosclerosis of [place] artery of both lower extremities, with unspecified presence of clinical manifestation (I70.203) Active confirmed Plan Of Treatment Pending Test Test Name Order Date 93515-QKQVNZN NAIL, 6 OR MORE 02/07/2014 98623-QGYSUQY NAIL, 6 OR MORE 05/09/2014 61592-RRHLYDC NAIL, 6 OR MORE 08/14/2014 90146-HHUMLSN NAIL, 6 OR MORE 11/13/2014 99975-IPUEQIT NAIL, 6 OR MORE 02/12/2015 51979-SVAOQBQ NAIL, 6 OR MORE 05/14/2015 67132-XSKYHQT NAIL, 6 OR MORE 08/13/2015 60783-GRHSMUE NAIL, 6 OR MORE 11/12/2015 30623-CTLTXWR NAIL, 6 OR MORE 02/11/2016 86577-SOTWIIJ NAIL, 6 OR MORE 06/10/2016 68373-ZFCHRRJ NAIL, 6 OR MORE 09/09/2016 98841-CWBUKUP NAIL, 6 OR MORE 12/16/2016 59243-SQJWMLR NAIL, 6 OR MORE 03/17/2017 77073-LAWDDQE NAIL, 6 OR MORE 06/22/2017 78074-LTHFMVQ NAIL, 6 OR MORE 09/21/2017 76857-RGXQGKS NAIL, 6 OR MORE 12/22/2017 54208-MGRCJXY NAIL, 6 OR MORE 04/10/2018 02044-VXFNIFG NAIL, 6 OR MORE 07/10/2018 40417-GAWAXRX NAIL, 6 OR MORE 10/16/2018 85668-WCMVEOX NAIL, 6 OR MORE 01/17/2019 56484-NISCTFW NAIL, 6 OR MORE 04/25/2019 55788-JSGERUU NAIL, 6 OR MORE 2019 93654-NOWYWCN NAIL, 6 OR MORE 11/19/2019 39608-LWQWJQB NAIL, 6 OR MORE 03/17/2020 70677-XUGLOYL NAIL, 6 OR MORE 05/28/2020 92477-RDODCKJ NAIL, 6 OR MORE 08/06/2020 34692-JKLPZBJ NAIL, 6 OR MORE 10/15/2020 57299-FGGBJMN NAIL, 6 OR MORE 01/05/2021 25349-GKYVGGK NAIL, 6 OR MORE 03/16/2021 49573-JDRMGRJ NAIL, 6 OR MORE 05/21/2021 48899-AQJZOQG NAIL, 6 OR MORE 07/30/2021 10221-VLYTAAA NAIL, 6 OR MORE 10/12/2021 49613-VBYAVST NAIL, 6 OR MORE 12/21/2021 34390-FELUPHL NAIL, 6 OR MORE 03/04/2022 46442-MDOPTEM NAIL, 6 OR MORE 05/20/2022 31596-KDKNUDJ NAIL, 6 OR MORE 07/29/2022 65120-NGGHWAA NAIL, 6 OR MORE 10/14/2022 68844-QRXXMFS NAIL, 6 OR MORE 12/16/2022 49766-BOWRAUZ NAIL, 6 OR MORE 03/30/2023 90551-IVSGMEH NAIL, 6 OR MORE 06/08/2023 07856-XSXXVLG NAIL, 6 OR MORE 08/17/2023 56686-Tuvo Destruction, -03/30/2023 38699-Vhtf Destruction, -12/16/2022 42652-Zwnb Destruction, -10/14/2022 38635-Syqu Destruction, -07/29/2022 10476-Fktz Destruction, -05/20/2022 98227-Mogh Destruction, -03/04/2022 60848-Mixp Destruction, 04-1712/21/2021 57704-Mrqq Destruction, 04-1710/12/2021 60614-Myte Destruction, -07/30/2021 24831-Ssys Destruction, -05/21/2021 88237-Rocf Destruction, -03/16/2021 37071-Xgst Destruction, 1-14 01/05/2021 35548-FHAR SKIN LESIONS, OVER 4 01/06/20 70492-HXKG SKIN LESIONS, OVER 4 03/16/20 23452-CPYH SKIN LESIONS, OVER 4 10/16/19 72606-OOQT SKIN LESIONS, OVER 4 08/07/19 96128-JIFG SKIN LESIONS, OVER 4 05/21/19 10933-IMVN SKIN LESIONS, OVER 4 07/31/19 89309-ZACQ SKIN LESIONS, OVER 4 10/13/19 97629-ORPM SKIN LESIONS, OVER 4 12/22/19 41830-IYZQ SKIN LESIONS, OVER 4 05/28/19 57188-HRVV SKIN LESIONS, OVER 4 03/17/20 13632-LEVU SKIN LESIONS, OVER 4 11/19/19 25871-ONZR SKIN LESIONS, OVER 4 08/02/19 85466-OHIS SKIN LESIONS, OVER 4 04/25/19 19283-ZCDS SKIN LESIONS, OVER 4 01/18/20 19 22696-XCHD SKIN LESIONS, OVER 4 10/17/19 19 83968-NKFB SKIN LESIONS, OVER 4 07/11/19 19 61999-XFLM SKIN LESIONS, OVER 4 04/10/19 52542-MQLX SKIN LESIONS, OVER 4 12/23/19 18 71355-BEVR SKIN LESIONS, OVER 4 09/22/19 18 09541-QWYK SKIN LESIONS, OVER 4 06/23/19 18 70760-BZVX SKIN LESIONS, OVER 4 03/17/20 17 77660-SEAP SKIN LESIONS, OVER 4 12/17/19 17 05982-FLVP SKIN LESIONS, OVER 4 06/11/19 41112-ABAW SKIN LESIONS, OVER 4 09/10/19 17 33519-RTOZ SKIN LESIONS, OVER 4 03/04/20 00214-OSOJ SKIN LESIONS, OVER 4 05/20/19 52986-AHWH SKIN LESIONS, OVER 4 07/30/19 86896-YSAX SKIN LESIONS, OVER 4 10/15/19 90458-ZJBQ SKIN LESIONS, OVER 4 12/17/19 77211-PUMK SKIN LESIONS, OVER 4 03/30/20 55542-FSXH SKIN LESIONS, OVER 4 08/17/19 24 60786-AETP SKIN LESIONS, OVER 4 03/06/20 24 51342-HYFP SKIN LESIONS, 2 TO 4 02/11/20 16 06892-EOLO SKIN LESIONS, 2 TO 4 11/12/19 16 95095-QEHS SKIN LESIONS, 2 TO 4 08/13/19 16 94469-ATPO SKIN LESIONS, 2 TO 4 05/14/19 16 54500-MAOR SKIN LESIONS, 2 TO 4 02/13/20 15 19890-ZBFX SKIN LESIONS, 2 TO 4 11/14/19 15 07717-WSAW SKIN LESIONS, 2 TO 4 08/15/19 15 52364-QDDR SKIN LESIONS, 2 TO 4 05/09/19 15 66470-ADLJ SKIN LESIONS, 2 TO 4 02/08/20 14 Insurance Providers Payer Name Payer Address Payer Phone Subscriber Number Group Number Insured Name Patient Relationship to Insured Coverage Start Date Coverage End Date [employer] [address] [address] [place] [address] [id number] Cindy Rich Self - patient is the insured Medical (General) History Medical History History ICD Code Cholesterol Heart disease Hypertension ASO/PVD Surgical History Surgery Date(Month/Year) hernia 2002 vaginectomy, colpocleisis, a nterior posterior repair, levator aniplication, sling, cystocopy 09/06/22 Hospitalization History Reason Date(Month/Year)
--- OUTSIDE RECORDS SUMMARY | 2025-03-27 07:51 | XMS_ITS | Patient Health Record ---
Author Organization [facility] Address [address] [place] [address] Care Team Providers Care Procurement Intern Name Role Phone LUIS DANIEL BISHOP Primary Care Provider Kat SOUZA MD, POLLO Unavailable Allergies No Known Allergies Results Component Value Reference Range Notes CT PERCUT ABSCESS DRAINAGE - CPT 58575 Reviewed date:08/30/2024 09:28:58 AM Interpretation: Performing Lab: Notes/Report: CT ABD/PEL W/O CONT - CPT 74 176 Reviewed date:08/08/2024 09:27:36 AM Interpretation: Performing Lab: Notes/Report: Signed [facility] [address] [place] [address] Patient: DEBORA ZAVALA Ordering Dr: POLLO SOUZA MD : [address]: BALDEMAR,PRIMARY PROVIDER Age/Sex: 78/F Family Dr: Pat Status: REG CLI Report #: [id number] Pat Loc: RCT Date: 07/31/24 Reason:Recurrent incisional hernia, Non-recurrent bilateral inguinal hernia withou Exam:[id number] CT/CT ABD/PEL W/O CONT ___ TECHNIQUE: CT [...] by: DULCE GARNETT MD Transcribed by: ICR FOOD CONCESSION MANAGER Reason For Referral Reason EVAL AND TREAT Diagnosis 1 Unilateral inguinal hernia, without obstruction or gangrene, not specified as recurrent (K40.90) Referring Provider First Name LUIS DANIEL Referring Provider Last Name EDNA Referring Provider Speciality Family [facility] Referred Organization [facility] Referred Provider POLLO SOUZA MD Referred Address [address] [place] [address],[place], [place],[address], Referred Provider Specialty General Surg elisa Clinical [...] 08/14/2024 Encounters Encounter Location Date Provider Diagnosis [facility] SURGERY [facility] [address] [place] [address] [place] [address] 07/19/2024 POLLO SOUZA MD Bilateral recurrent inguinal hernia without obstruction or gangrene K40.[address] [facility] [address] [place] [address] [place] [address] 08/14/2024 POLLO SOUZA MD Abdominal wall seroma, initial encounter S30.1XXA ; Recurrent incisional hernia K43.2 and Left inguinal hernia K40.[address] [facility] [address] [facility] [address] [place] [address] [place] [address] 07/26/2024 POLLO SOUZA MD Recurrent incisional hernia [...] lengthy discussion with the patient and her jogqpbmr-pg-xyb regarding the natural history and pathophysiology of [...] the abdomen and pelvis performed here at [facility] on 07/31/2024 is reviewed including independent review [...] Insured Coverage Start Date Coverage End Date [facility] [address] [address] [place] [address] [id number] DEBORA ZAVALA Self - patient is the insured MEDICAID [address] [place], [place] [id number] [phone] [id number] DEBORA ZAVALA Self - patient is the insured 4 Medical (General) History Medical History History ICD Code Hypertension Overactive bladder Surgical History Surgery Date(Month/Year) Hernia repair X 9 Heart Stent placement X 2 Open Cholcystectomy Bladder Lift Hospitalization History Reason Date(Month/Year) Above procedure
[2025-03-27 08:05] VITALS: BMI 21.0
--- NOTE | 2025-03-27 08:05 | A.OFFVIS_ITS ---
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 Patient reports the thickened toe nails have been going on for awhile. Patient moved out of state to [place] and was coming every 7 to 8 weeks to have nails trimmed at a different small package and bundle sorter clerk. They are painful. She has tried tree oil and lotions (natural remedies) skin is dry and cracking. Gauge Machine Operator Services: Gauge Machine Operator Present (patient's daughter) Gauge Machine Operator Name: patient's daughter Allergies No Known Allergies Allergy (Verified 03/27/25 08:07) HPI HPI Thickened nails: Details: The patient is a 79 year old female presenting for initial evaluation of painful callused feet and thickened toenails. Onychomycosis and Hyperkeratosis: The patient has painful calluses and dry skin causing significant pain at times. She also has thickened nails due to a long-standing fungal infection. She has previously used a non-prescribed cream and has had her nails treated by a small package and bundle sorter clerk 6-7 months ago out of state. Chronic Abdominal Fluid Collection: The patient has a history of a very old abdominal mesh and has been experiencing fluid collection since May of this year. This requires drainage by a radiologist every three weeks. The mesh cannot be removed, and a prior attempt to use a catheter resulted in an infection. Dementia: The patient has a diagnosis of progressive dementia, characterized by forgetfulness, anxiety, and variable day-to-day symptoms. She has not yet been evaluated by a neurologist for this condition. Social History: - The patient recently relocated from [place] back to the area after a one-year stay. - Her family is involved in her care. - Functional Status: The patient remains active and is often on her feet. [facility] Medical History (Updated 03/27/25 @ 21:29 by Henry Hansen DPM) Chronic constipation Hyperlipidemia Hemorrhoids Use of cane as ambulatory aid Thickened nails Abdominal wall seroma Excessive fluid in stomach Hypertension Surgical History (Updated 03/21/25 @ 15:18 by John Haddad MD) History of midurethral sling procedure H/O: hysterectomy Hx of heart artery stent H/O ovarian cystectomy H/O hernia repair Social History (Updated 03/21/25 @ 15:01 by Brijesh Wyatt CMA) Housing: Apartment Alcohol intake: never Patient Tobacco Use Status: Never used Tobacco e-Cigarette/Vaping Use: Never Used Second Hand Smoke Exposure: No service: No Current occupational status: unemployed Cognitive needs: No Hearing needs: No Vision needs: No Review of Systems Const All systems reviewed & are unremarkable except as noted in HPI and below Physical Exam Vital Signs: BMI result Body Mass Index 21.0 Extrem Other: *Bilateral Lower Extremity Focused Foot Exam Vascular: DP/PT 2/4, CFT<3s to digits, TG warm to cool, no pedal edema, pedal hair absent Derm: Skin: Large hyperkeratotic lesion right submet 3, distal medial aspect of the left hallux, distal aspect of left 2nd and 3rd toes. Interdigital spaces: Clear, no maceration or fungal infection. Nails: Thickened elongated dystrophic discolored toenails times 10 with subungual debris. Neuro: Protective sensation grossly intact to bilateral lower extremities Msk: Deformities: Moderate flexion deformity of digits with overlapping 2nd digit. Muscle strength: 4/5 in all muscle groups. Gait: Normal, no antalgic or steppage gait observed. Footwear Assessment: Shoes inspected; appropriate fit, no excessive wear, or foreign objects noted. Office Procedures AMB Debridement /Avulsion Details: Procedure: Nail debridement Location: 10 nails, bilateral feet Anesthesia: N/A Description: The affected toenails were cleansed with an antiseptic solution. Using sterile nail nippers and a rotary david, dystrophic and mycotic nail material was carefully debrided and reduced in thickness. Care was taken to avoid trauma to the surrounding skin and nail bed. All debris was removed as tolerated. The area was inspected for signs of infection or ulceration. Patient tolerated the procedure well without complications. Tolerance: Patient tolerated procedure well, no immediate complications. Procedure: Callus debridement Location: 1 right foot, 3 left foot Anesthesia: N/A Description: The affected area was cleansed with an antiseptic solution. Using a sterile #15 blade, the hyperkeratotic tissue was radially debrided from the foot. All callused tissue was removed down to normal skin without causing bleeding or discomfort. The area was inspected for underlying ulceration or infection. Patient tolerated the procedure well. No complications noted. Tolerance: Patient tolerated procedure well. The right foot callus lesion had mild bleeding upon debridement which was cleansed with alcohol, dressed with an antibiotic cream and a Band-Aid. The patient is geriatric with a history of dementia and severely thickened calluses and elongated nails. She is unable to perform self-care. The patient requires routine foot care to avoid injury, infections, and decreased mobility. 62641-Uyvedpisioe of Nail 6+ 32361-Ywgtfmgztag of Callus (2-4) Procedure code (CPT) selection complete Results Reviewed Results Reviewed: Laboratory Tests 03/07/25 14:11 Hemoglobin A1c % 5.6 Assessment & Plan Assessment & Plan (1) Onychogryphosis: Code(s): L60.2 - Onychogryphosis Category: Medical Plan: * Debrided nails x 10 using a sterile nail Nipper and rotary bur. * Follow up in 9 weeks (2) Callus of foot: Code(s): L84 - Corns and callosities Category: Medical Plan: * Debrided lesions with a #15 Blade. * Rx urea cream (3) Cognitive decline: Code(s): R41.89 - Other symptoms and signs involving cognitive functions and awareness Category: Medical Plan: The patient is geriatric with a history of dementia and severely thickened calluses and elongated nails. She is unable to perform self-care. The patient requires routine foot care to avoid injury, infections, and decreased mobility. Medications: New urea 40% Apply foot calluses 1 appl topical BID 28 grams 0RF L84 - Corns and callosities Coding Level of Care Code New Pt Level 4 (94931) Diagnoses Onychogryphosis L60.2 Callus of foot L84 Cognitive decline R41.89 Time Spent (min) 30
== END 2025-03-27 08:42 | disposition home or self-care (01) ==
LOC: HO.HPODS 07:48
PROVIDERS: PCP Student in an Organized Health Care Education/Training Program; Visit Provider Student in an Organized Health Care Education/Training Program
DX: L60.2 Onychogryphosis (principal); L84 Corns and callosities; R41.89 Other symptoms and signs involving cognitive functions and awareness
CPT/HCPCS: 99203; 99204

== ENCOUNTER 2025-03-29 10:57 | Outpatient (AMB) | payer MEDICARE, SELFPAY ==
--- OUTSIDE RECORDS SUMMARY | 2023-11-02 10:30 | XMS_ITS ---
Author Organization [facility] Address [address] [place] [address] Care Team Providers Care Technical Specialist Cytogenetics Name Role Phone Hannah MIGUEL, Rebel Primary Care Provider U David Callahan Unavailable [phone] Encounters Encounter Location Date [facility] [address] 11/02/2023 David Cook Plan Of Treatment No Information Progress Notes * Cindy RICHDOB:1945 (79 yo F)Acc No.[id number]:11/02/2023 Progress Note Patient: Cindy VIERA Provider: Gretchen Cook DPM :1945 A ge:78 Y S ex:Female Date:11/02/2023 Address:[address] [place] [phone] Pcp:Rebel Young MD Subjective: * Chief Complaints: * * Medical History: Objective: * Vitals: Assessment: Plan: * Treatment: * Images: * The named appointment provid er may or may not be the originator of this progress note, and it is not deemed complete until electronically signed by the appointment provider. Sign off status: Pending * Provider: Gretchen Cook DPM Date: 0 11/02/2023 Generated for Loci jyothi/Nagi/eTransmitting on: 05/30/2024 11:00 AM EST
--- OUTSIDE RECORDS SUMMARY | 2023-12-07 10:30 | XMS_ITS ---
Author Organization [facility] Address [address] [place] [address] Care Team Providers Care Activated Sludge Attendant Name Role Phone Hannah MIGUEL, Rebel Primary Care Provider U David Callahan Unavailable [phone] Encounters Encounter [facility] [address] 12/07/2023 David Cook Plan Of Treatment No Information Progress Notes * Cindy RICHDOB:1945 (79 yo F)Acc No.[id number]:12/07/2023 Progress Note Patient: Cindy VIERA Provider: Gretchen Cook DPM :1945 A ge:78 Y S ex:Female Date:12/07/2023 Address:[address] [place] [phone] Pcp:Rebel Young MD Subjective: * Chief Complaints: [...] DPM Date: 0 12/07/2023 Generated for Loci jyothi/Nagi/eTmariasmelena on: 05/30/2024 11:00 AM EST
--- OUTSIDE RECORDS SUMMARY | 2024-09-13 06:30 | XMS_ITS ---
Author Organization [facility] Address [address] [place] [phone] Care Team Providers Care Pumper Gager Apprentice Name Role Phone LUIS DANIEL BISHOP Primary Care Provider Kat NULL MD, POLLO Unavailable REASON FOR VISIT US FLUID CAT W/ IMAGING Encounters Encounter Location Date Provider Diagnosis [facility] [address] [place] [address] [place] [address] 09/13/2024 POLLO NULL MD Plan Of Treatment No Information Progress Notes * DEBORA ZAVALADOB:1945 (79 yo F)Acc No.[id number]:09/13/2024 Progress Notes Patient: DEBORA VIERA Provider: Bebe Null M.D. :1945 A ge:79 Y S ex:Female Date:09/13/2024 Address:[address] [facility] [address] [place], [place] [phone] Pcp:LUIS DANIEL BISHOP Subjective: * Chief Complaints: * U S FLUID CAT W/ IMAGING Billing Information: * Procedure Codes: * Electronic signature of PRES ELIZABETH NULL MD on 03/29/2025 at 09:59 AM HEALTH COORDINATOR Sign off status: Pending * Provider: Bebe Null M.D. Date: 0 09/13/2024 Generated for Loci ng/Faxing/eTransmitting on: 1 05/30/2024 09:59 AM HEALTH COORDINATOR
--- OUTSIDE RECORDS SUMMARY | 2024-10-10 10:30 | XMS_ITS ---
Author Organization [facility] Address [address] [place], [place] [phone] Care Team Providers Care Grease Press Helper Name Role Phone DionicioRex real Primary Care Provider Debbi Tomlinson Unavailable [phone] REASON FOR VISIT CRS follow up, MSSA [...] Provider Diagnosis [facility] [address] [facility] [address] [place] [address] 10/10/2024 Debbi Hernandez Assessments Encounter Date Diagnosis [...] Notes * DEBORA ZAVALADOB:1945 (79 yo F)Acc No.[id number]:10/10/2024 Progress Notes Patient: DEBORA VIERA Provider: Augusta Hernandez MD :1945 A ge:79 Y S ex:Female Date:10/10/2024 Address:[address] [place], [place] [address], [place] [address], [facility] Pcp:Rex Packer Subjective: * Chief Complaints: * [...] Electronic signature of Bhavin Hernandez MD on 03/29/2025 at 10:00 AM MULTISKILL OPERATOR Sign off status: Pending * Provider: Augusta Hernandez MD Date: 0 10/10/2024 Generated for Aman roe/Nagi/Arielaitting on: 1 05/30/2024 10:00 AM MULTISKILL OPERATOR History and Physical Notes * HPI (History [...]
--- OUTSIDE RECORDS SUMMARY | 2025-03-29 11:00 | XMS_ITS | Patient Health Record ---
Author Organization [facility] Address [address] [place] [address] Care Team Providers Care Tree Chipper Name Role Phone LUIS DANIEL BISHOP Primary Care Provider Kat SOUZA MD, POLLO Reese Allergies No Known Allergies Results Component Value Reference Range Notes CT ABD/PEL W/O CONT - CPT 74 176 Reviewed date:08/08/2024 09:27:36 AM Interpretation: Performing Lab: Notes/Report: Signed [facility] [address] [place] [address] Patient: DEBORA ZAVALA Ordering Dr: POLLO SOUZA MD : [address]: BALDEMAR,PRIMARY PROVIDER Age/Sex: 78/F Family Dr: Pat Status: REG CLI Report #: [id number] Pat Loc: RCT Date: 07/31/24 Reason:Recurrent incisional hernia, Non-recurrent bilateral inguinal hernia withou Exam:[id number] CT/CT ABD/PEL W/O CONT ___ TECHNIQUE: CT [...] 1108 by: DULCE GARNETT MD Transcribed by: [facility] BOATBUILDER WOOD CT PERCUT ABSCESS DRAINAGE - CPT 72241 Reviewed date:08/30/2024 09:28:58 AM Interpretation: Performing Lab: Notes/Report: Reason For Referral Reason EVAL AND TREAT Diagnosis 1 Unilateral inguinal hernia, without obstruction or gangrene, not specified as recurrent (K40.90) Referring Provider First Name LUIS DANIEL Referring Provider Last Name EDNA Referring Provider Speciality Family [facility] Referred Organization [facility] Referred Provider POLLO SOUZA MD Referred Address [address] [place] [address],[place], [place],[address], Referred Provider Specialty General Surg elisa Clinical [...] 08/14/2024 Encounters Encounter Location Date Provider Diagnosis [facility] SURGERY [facility] [address] [place] [address] [place] [address] 07/19/2024 POLLO SOUZA MD Bilateral recurrent inguinal hernia without obstruction or gangrene K40.21 [facility] [address] [place] [address] [place] [address] 08/14/2024 POLLO SOUZA MD Abdominal wall seroma, initial encounter S30.1XXA ; Recurrent incisional hernia K43.2 and Left inguinal hernia K40.90 [facility] [address] [facility] [address] [place] [address] [place] [address] 07/26/2024 POLLO SOUZA MD Recurrent incisional hernia [...] lengthy discussion with the patient and her voerxcme-rc-osp regarding the natural history and pathophysiology of [...] the abdomen and pelvis performed here at [facility] on 07/31/2024 is reviewed including [...] Insured Coverage Start Date Coverage End Date [facility] [address] [address] [place] [address] [id number] DEBORA ZAVALA Self - patient is the insured MEDICAID [address] [place], [place] [id number] [phone] [id number] DEBORA ZAVALA Self - patient is the insured 4 Medical (General) History Medical History History ICD Code Hypertension Overactive bladder Surgical History Surgery Date(Month/Year) Hernia repair X 9 Heart Stent placement X 2 Open Cholcystectomy Bladder Lift Hospitalization History Reason Date(Month/Year) Above procedure
--- OUTSIDE RECORDS SUMMARY | 2025-03-29 11:00 | XMS_ITS | Patient Health Record ---
Author Organization [facility] Address [address] [place] [address] Care Team Providers Care Gift Shop Clerk Name Role Phone Hannah MIGUEL, [facility] Primary Care Provider U nguyen David Cook Unavailable [phone] Allergies No Known Allergies Reason For Referral No Information Medications Medication SIG (Take, Route, Frequency, Duration) Notes Start Date End Date Status Pantoprazole Sodium Not-Taking Vitamin B-12 1000 MCG Oral; Duration: 30 Active Vitamin D3 Not-Takin g Vitamin D (Ergocalciferol) 81740 UNIT Oral; Duration: 42 Active zzzCompression Stockings [...] Problem Acquired hammer toe of right foot (8226346864427268 ) Other hammer toe(s) (acquired), right foot (M20.41) Active confirmed Response to treatment, Improvemen t Problem Acquired hammer toe of left foot (2699115062692630 ) Other hammer toe(s) (acquired), left foot (M20.42) Active confirmed Response to treatment, Improvemen t Problem Bilateral atherosclerosis of arteries of lower limbs (disorder) ([id number] 7) Atherosclerosis of [place] artery of both lower extremities, with unspecified presence of clinical manifestation (I70.203) Active confirmed Plan Of Treatment Pending Test Test Name Order Date [id number] NAIL, 6 OR MORE 02/07/2014 36622-YOSYNEP NAIL, 6 OR MORE 05/09/2014 01737-HLQMSME NAIL, 6 OR MORE 08/14/2014 33106-UEDZVSV NAIL, 6 OR MORE 11/13/2014 38598-TCVVZGJ NAIL, 6 OR MORE 02/12/2015 31642-HOWXJRT NAIL, 6 OR MORE 05/14/2015 40432-SXPXSWV NAIL, 6 OR MORE 08/13/2015 09319-VMCJMDK NAIL, 6 OR MORE 11/12/2015 78493-UIJYFNF NAIL, 6 OR MORE 02/11/2016 39602-HYYNLSK NAIL, 6 OR MORE 06/10/2016 70762-IGECLVX NAIL, 6 OR MORE 09/09/2016 50851-JMHWDPJ NAIL, 6 OR MORE 12/16/2016 52549-HZOGRAX NAIL, 6 OR MORE 03/17/2017 93742-FUDNNLA NAIL, 6 OR MORE 06/22/2017 53127-OSDYVWH NAIL, 6 OR MORE 09/21/2017 85176-XCMTMQH NAIL, 6 OR MORE 12/22/2017 45154-IDEBITK NAIL, 6 OR MORE 04/10/2018 35552-IGXQKMP NAIL, 6 OR MORE 07/10/2018 51831-NIDTSLG NAIL, 6 OR MORE 10/16/2018 05610-JAVUIGL NAIL, 6 OR MORE 01/17/2019 50298-SAVKQDP NAIL, 6 OR MORE 04/25/2019 32616-UGPFTHX NAIL, 6 OR MORE 2019 42749-KCUJKQC NAIL, 6 OR MORE 11/19/2019 50630-QAXBIXW NAIL, 6 OR MORE 03/17/2020 48861-EXDOCJP NAIL, 6 OR MORE 05/28/2020 89484-LHTDUOJ NAIL, 6 OR MORE 08/06/2020 86448-QENRLEJ NAIL, 6 OR MORE 10/15/2020 41007-OFRKKZX NAIL, 6 OR MORE 01/05/2021 43267-VBGOAMZ NAIL, 6 OR MORE 03/16/2021 58340-MMPGFUX NAIL, 6 OR MORE 05/21/2021 41916-CFBOHVJ NAIL, 6 OR MORE 07/30/2021 87800-ZJMDNPZ NAIL, 6 OR MORE 10/12/2021 14084-FBMLIZQ NAIL, 6 OR MORE 12/21/2021 65867-ZBMPPQI NAIL, 6 OR MORE 03/04/2022 49442-MBSMDIE NAIL, 6 OR MORE 05/20/2022 19269-ADPXKZT NAIL, 6 OR MORE 07/29/2022 02831-NJDWALI NAIL, 6 OR MORE 10/14/2022 12167-YPRTLZS NAIL, 6 OR MORE 12/16/2022 00352-LAEFCIN NAIL, 6 OR MORE 03/30/2023 11454-KDTJQAI NAIL, 6 OR MORE 06/08/2023 93892-PBJXMCP NAIL, 6 OR MORE 08/17/2023 88041-Yhjp Destruction, -03/30/2023 93869-Bmwd Destruction, -12/16/2022 30857-Erat Destruction, -10/14/2022 47597-Isfi Destruction, -07/29/2022 70887-Wmfw Destruction, -05/20/2022 54554-Ubpd Destruction, -03/04/2022 76867-Zlnj Destruction, 04-1712/21/2021 78478-Vmyj Destruction, 04-1710/12/2021 93822-Bgeq Destruction, -07/30/2021 76504-Odwh Destruction, -05/21/2021 61433-Wcdi Destruction, -03/16/2021 91584-Dtdf Destruction, 1-14 01/05/2021 02697-YWTT SKIN LESIONS, OVER 4 01/06/20 91172-PDUR SKIN LESIONS, OVER 4 03/16/20 33709-SYUF SKIN LESIONS, OVER 4 10/16/19 77273-VLIE SKIN LESIONS, OVER 4 08/07/19 48983-ZFJI SKIN LESIONS, OVER 4 05/21/19 97892-UBCR SKIN LESIONS, OVER 4 07/31/19 48661-ZJTM SKIN LESIONS, OVER 4 10/13/19 67430-CBCP SKIN LESIONS, OVER 4 12/22/19 14627-VUIW SKIN LESIONS, OVER 4 05/28/19 97068-DUDQ SKIN LESIONS, OVER 4 03/17/20 58621-UECT SKIN LESIONS, OVER 4 11/19/19 71720-RDHJ SKIN LESIONS, OVER 4 08/02/19 78280-PXKA SKIN LESIONS, OVER 4 04/25/19 84598-IZHW SKIN LESIONS, OVER 4 01/18/20 19 03735-NYAH SKIN LESIONS, OVER 4 10/17/19 19 61024-QXIP SKIN LESIONS, OVER 4 07/11/19 19 11680-HPNU SKIN LESIONS, OVER 4 04/10/19 16912-VEWY SKIN LESIONS, OVER 4 12/23/19 18 19435-QHNN SKIN LESIONS, OVER 4 09/22/19 18 13520-OKFR SKIN LESIONS, OVER 4 06/23/19 18 97881-MDCX SKIN LESIONS, OVER 4 03/17/20 17 48545-MWNS SKIN LESIONS, OVER 4 12/17/19 17 04518-KYPC SKIN LESIONS, OVER 4 06/11/19 00974-FJBI SKIN LESIONS, OVER 4 09/10/19 17 32851-KBZZ SKIN LESIONS, OVER 4 03/04/20 19106-IASJ SKIN LESIONS, OVER 4 05/20/19 23913-GTGO SKIN LESIONS, OVER 4 07/30/19 82847-CCNP SKIN LESIONS, OVER 4 10/15/19 34065-EYPJ SKIN LESIONS, OVER 4 12/17/19 67889-NWLL SKIN LESIONS, OVER 4 03/30/20 04179-QPSG SKIN LESIONS, OVER 4 08/17/19 24 28592-RLQD SKIN LESIONS, OVER 4 03/06/20 24 99062-PTHR SKIN LESIONS, 2 TO 4 02/11/20 16 38087-HSLO SKIN LESIONS, 2 TO 4 11/12/19 16 72554-YQLV SKIN LESIONS, 2 TO 4 08/13/19 16 54613-THHF SKIN LESIONS, 2 TO 4 05/14/19 16 15737-PZMG SKIN LESIONS, 2 TO 4 02/13/20 15 29315-IZBI SKIN LESIONS, 2 TO 4 11/14/19 15 91825-DBGA SKIN LESIONS, 2 TO 4 08/15/19 15 55059-YZDH SKIN LESIONS, 2 TO 4 05/09/19 15 13715-KXFM SKIN LESIONS, 2 TO 4 02/08/20 14 Insurance Providers Payer Name Payer Address Payer Phone Subscriber Number Group Number Insured Name Patient Relationship to Insured Coverage Start Date Coverage End Date [employer] [address] [address] [place] [address] [id number] Cindy Rich Self - patient is the insured Medical (General) History Medical History History ICD Code Cholesterol Heart disease Hypertension ASO/PVD Surgical History Surgery Date(Month/Year) hernia 2002 vaginectomy, colpocleisis, a nterior posterior repair, levator aniplication, sling, cystocopy 09/06/22 Hospitalization History Reason Date(Month/Year)
--- OUTSIDE RECORDS SUMMARY | 2025-03-29 11:00 | XMS_ITS | Patient Health Record ---
Author Organization [facility] Address [address] [place], [place] [id number] Care Team Providers Care Automatic Paint Sprayer Operator Name Role Phone Rex Packer Primary Care Provider Debbi Tomlinson Unavailable [phone] Allergies No Known Allergies Reason For Referral [...] W/U Status Risk Notes Problem Frail elderly ([id number]) Frail elderly (R54) Active confirmed Vital Signs Heart Rate 75 /min 10/23/2024 O2-98 Casey Mahoney MA Temperature 98 degrees Fahrenheit 12/11/2024 Blood pressure diastolic 93 mm Hg 12/11/2024 Blood pressure systolic 163 mm Hg 12/11/2024 Weight 120 lbs 10/23/2024 O2-98 Casey Mahoney MA Encounters Encounter Location Date Provider Diagnosis [facility] [place] [address] 10/23/2024 Gemma Mary Local infection of t he skin and subcutaneous tissue, unspecified L08.9 ; 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) Z22.321 and Frail elderly R54 [facility] [address] [place] [id number] 12/11/2024 Gemma Mary Local infection of t he skin and subcutaneous tissue, unspecified L08.9 ; Methicillin susceptible Staphylococcus aureus infection, unspecified site A49.01 and Frail elderly R54 [facility] [place] [address] 09/19/2024 Gemma Mary [facility] [address] [facility] [address] [place] [address] 10/18/2024 Gemma Mary Assessments Encounter Date Diagnosis [...] Coverage End Date MEDICARE [employer] [address] [address] [place] [address] [id number] DEBORA ZAVALA Self - patient is the insured MEDICAID [address] [place], [place] [id number] DEBORA ZAVALA Self - patient is the insured Medical (General) History Medical History History ICD Code Hypertension Surgical History Surgery Date(Month/Year) Hypertension Cardiac stents CHOLECYSTECTOMY Hospitalization History Reason Date(Month/Year) as above
[2025-03-29 11:09] VITALS: BP 178/80; PULSE 58; RESP 16; TEMP 36.6; O2SAT 99; BMI 21.0
--- NOTE | 2025-03-29 11:09 | MHC.PC.OV ---
Vital Signs 03/29/25 11:09 Height 5 ft 2 in Weight 115 lb BMI 21.0 BP 178/80 H Blood Pressure Location Lt brachial Position Sitting Respiration 16 Pulse 58 Pulse Source Pulse Oximeter Temp 97.8 F Temp Source Oral Pulse Oximetry (%) 99 Oxygen Delivery Method Room Air Intake Visit Reasons: discuss medication Intake Note: Patient present for lab review and patient is complaining about worsening of hemmroids. Custom Tailor Apprentice Required: Yes Custom Tailor Apprentice Name: Daughter Accompanied by: Daughter Allergies No Known Allergies Allergy (Verified 03/29/25 11:15) Medication List - Last Reconciled 03/29/25 by John Haddad MD carvedilol 3.125 mg PO BID carvedilol 12.5 mg PO BID cyanocobalamin (vitamin B-12) 1,000 mcg PO DAILY urea 40% 1 appl topical BID Tobacco use date assessed: 03/29/25 Fall risk assessment: No Falls in past year Last assessed Fall Risk: 03/29/25 Dental Screening Dental Screen Date: 03/29/25 Did you have a dental visit in the last 12 months?: Yes Did you have a dental problem in the last 6 months where you did not have access to dental care?: No Was dental information given to patient?: Patient has dentist HPI HPI Comments History of Present Illness Details History of Present Illness The patient is a 79 year old female presenting with medication management for hypertension. Hypertension: The patient has a history of hypertension and was previously on lisinopril, which was discontinued due to causing her blood pressure to drop too low. She was then started on carvedilol 3.125 mg in October, which was later increased to 12.5 mg, although the rationale for this change was not documented. Her caregiver administers her medication based on home blood pressure monitoring, giving her one or two 3.125 mg pills for readings around 145-150 mmHg, such as a reading of 150/73 this morning. For higher readings, such as 180-190 mmHg and up to 200/92 mmHg, she is given the 12.5 mg dose, which effectively lowers her blood pressure to around 130 mmHg. She has a follow-up appointment with cardiology scheduled for September. Hypotension: The patient has a history of her blood pressure dropping very low, with readings around 40/70 mmHg, which occurred approximately a year ago in April. These hypotensive episodes caused her to experience dizziness and pass out. Tinnitus: The patient reported experiencing tinnitus, describing it as being very noisy in my ears. Medications: - Carvedilol 3.125 mg: taken as one or two pills for blood pressure readings around 145-150 mmHg. - Carvedilol 12.5 mg: taken for blood pressure readings of 180 mmHg or higher. - Lisinopril: discontinued due to causing hypotension. Social History: - The patient receives assistance with her medication management from her , who is 84 years old. - Her adjusts her carvedilol dosage based on frequent home blood pressure checks, finding it more convenient to administer multiple small pills (3.125mg) rather than splitting a larger (12.5mg) pill. Diagnostic Results: - Home blood pressure monitoring: Readings have been noted as 150/73 mmHg, 150/72 mmHg, and 150/76 mmHg. - High readings have reached 180, 190, 193/92, and 200 mmHg. - Nighttime readings have been around 140/84 mmHg. - Past low readings have been recorded as 40/70 mmHg. Past Medical History - Hypertension. - History of medication-induced hypotension leading to dizziness and syncope. Health Maintenance - Patient has a cardiology follow-up appointment scheduled for September. - Recommended attempting to reschedule the cardiology appointment to an earlier date, potentially coordinating with her 's appointment in May. [facility] Medical History (Updated 03/30/25 @ 10:46 by John Haddad MD) Chronic constipation Hyperlipidemia Hemorrhoids Use of cane as ambulatory aid Thickened nails Abdominal wall seroma Excessive fluid in stomach Hypertension Surgical History (Updated 03/21/25 @ 15:18 by John Haddad MD) History of midurethral sling procedure H/O: hysterectomy Hx of heart artery stent H/O ovarian cystectomy H/O hernia repair Social History (Updated 03/21/25 @ 15:01 by Brijesh Wyatt CMA) Housing: Apartment Alcohol intake: never Patient Tobacco Use Status: Never used Tobacco e-Cigarette/Vaping Use: Never Used Second Hand Smoke Exposure: No service: No Current occupational status: unemployed Cognitive needs: No Hearing needs: No Vision needs: No Questionnaire PHQ-9 Over the last 2 weeks, how often have you been bothered by any of the following problems? 1. Little interest or pleasure in doing things: nearly every day 2. Feeling down, depressed, or hopeless: nearly every day 3. Trouble falling or staying asleep, or sleeping too much: several days 4. Feeling tired or having little energy: several days 5. Poor appetite or overeating: several days 6. Feeling bad about yourself - or that you are a failure or have let yourself or your family down: several days 7. Trouble concentrating on things, such as reading the newspaper or watching television: not at all 8. Moving or speaking so slowly that other people could have noticed. Or the opposite - being so fidgety or restless that you have been moving around a lot more than usual: not at all 9. Thoughts that you would be better off or of hurting yourself in some way: not at all Total score: 10 Depression Screening Interpretation: Positive Depression Screening Done: Yes 86286 - PHQ-9 Billing: Yes Source: Developed by Drs. Augustine Colbert, Eileen Mendoza, Abdirahman Anguiano and colleagues, with an educational joellen from [employer]. Thrive Questionnaire Date Thrive assessed: 03/29/25 I am a: Patient What is your living situation today?: I have a steady place to live Within the past 12 months, did the food you bought not last and you didn't have the money to get more?: I choose not to answer this question Within the past 12 months, did you worry whether your food would run out before you got money to buy more?: I choose not to answer this question Do you have trouble paying for medicines?: I choose not to answer this question Do you have trouble getting transportation to medical appointments?: I choose not to answer this question Do you have trouble paying your heating and electricity bill?: I choose not to answer this question Do you have trouble taking care of your child, family member or friend?: I choose not to answer this question Do you have trouble with day-to-day activities such as bathing, preparing meals, shopping, managing finances, etc.?: Yes Are you currently unemployed and looking for a job?: I choose not to answer this question Are you interested in more education?: I choose not to answer this question Currently or been in a relationship where the following occur: I choose not to answer THRIVE Score: 0 AUDIT C Alcohol Use Questionnaire (AUDIT-C) 3. How often do you have six or more drinks on one occasion?: Never Total Score: 0 NICOLE-7 AMB Questionnaire NICOLE-7 Date NICOLE - 7 assessed: 03/29/25 Feeling nervous, anxious, or on edge: 3 = Nearly every day Not being able to stop or control worryin = Several days Worrying too much about different things: 1 = Several days Trouble relaxin = Several days Being so restless that it is hard to sit still: 1 = Several days Becoming easily annoyed or irritable: 1 = Several days Feeling afraid as if something awful might happen: 1 = Several days Total NICOLE-7 score (0-4 normal; 5-9 mild; 10-14 moderate; 15-21 severe): 9 Source: Developed by Drs. Augustine Colbert, Eileen Mendoza, Abdirahman Anguiano and colleagues, with an educational joellen from [employer]. NICOLE-7 Assessment Billing NICOLE-7 Assessment Tool: NICOLE-7 Assessment 98123 Review of Systems Narrative Review of Systems - Neurological: Reports a history of dizziness and passing out, associated with low blood pressure. - Ears: Reports tinnitus, described as a very noisy sound in her ears. 10-point ROS reviewed and negative except as noted in HPI Physical exam (Primary Care) Vital Signs: Last Vital Signs Temp 97.8 F 03/29/25 11:09 Pulse 58 03/29/25 11:09 Resp 16 03/29/25 11:09 BP 178/80 H 03/29/25 11:09 Pulse Ox 99 03/29/25 11:09 Oxygen Delivery Method Room Air 03/29/25 11:09 BMI result Body Mass Index 21.0 Tobacco/Smoking Status: Tobacco use Status Tobacco use date assessed 03/29/25 03/29/25 11:12 Patient Tobacco Use Status Never used Tobacco 03/29/25 11:12 e-Cigarette/Vaping Use Never Used 03/29/25 11:12 PHQ-9: PHQ-9 Score PHQ-9: Total score 10 03/29/25 11:54 Depression Screening Interpretation: Positive Thrive Assessment: Date of Thrive Assessment Date Thrive assessed 03/29/25 03/29/25 11:12 Currently or been in a relationship where the following occur: I choose not to answer Narrative Physical Exam General: Well-appearing, in no acute distress. Vital signs: Blood pressure recorded at 150/72 in the morning and 155/76 later. Previous episodes of hypotension noted with blood pressure as low as 70/40 HEENT: Normocephalic, atraumatic. PERRLA, EOMI. Conjunctiva clear, sclera anicteric. Oropharynx clear, mucous membranes moist. TMs intact bilaterally. Neck: Supple, no lymphadenopathy, no thyromegaly, no JVD or carotid bruits. Cardiovascular: RRR, normal S1/S2, no murmurs, rubs, or gallops. Peripheral pulses 2+ and symmetric. No edema. Respiratory: Lungs clear to auscultation bilaterally, no wheezes, rales, or rhonchi. Normal effort. Abdomen: Soft, non-tender, non-distended. Normoactive bowel sounds. No hepatosplenomegaly, no masses. MSK: Full range of motion, no joint swelling or deformity. Normal gait. Skin: Warm, dry, intact. No rashes, lesions, or pallor. Neuro: Alert and oriented x3. Cranial nerves II-XII intact. Strength 5/5 throughout. Sensation intact. Reflexes 2+ symmetric. Normal coordination and gait. Psych: Appropriate mood and affect. Normal judgment and insight. Complaints of tinnitus noted ( very noisy in my ears ). Coding Level of Care Code Est Pt Level 3 (97834) Add On Problem Visit Only Diagnoses Hypertension I10 Hx of heart artery stent Z95.5 CAD (coronary artery disease) I25.10 Atherosclerosis I70.90 Tinnitus H93.19 Use of cane as ambulatory aid Z99.89 Anxiety F41.9 Additional Codes NICOLE-7 Assessment Billing - NICOLE-7 Assessment Tool: NICOLE-7 Assessment 55200 ([id number]) PHQ-9 - 46770 - PHQ-9 Billing: Yes ([id number]) Assessment & Plan Assessment & Plan (1) Hypertension: Code(s): I10 - Essential (primary) hypertension Category: Medical (2) Hx of heart artery stent: Comment: [facility] stents X2~ 2002 Code(s): Z95.5 - Presence of coronary angioplasty implant and graft Category: Surgical (3) CAD (coronary artery disease): Code(s): I25.10 - Atherosclerotic heart disease of [place] coronary artery without angina pectoris Category: Medical (4) Atherosclerosis: Code(s): I70.90 - Unspecified atherosclerosis Category: Medical (5) Tinnitus: Code(s): H93.19 - Tinnitus, unspecified ear Category: Medical (6) Use of cane as ambulatory aid: Code(s): Z99.89 - Dependence on other enabling machines and devices Category: Medical (7) Anxiety: Code(s): F41.9 - Anxiety disorder, unspecified Category: Medical Plan Consent Patient was informed and verbally consented to the use of an ambient scribe for clinic note documentation during this visit. Plan 1. Essential Hypertension - Refill carvedilol 3.125 mg, 180 tablets for a three-month supply. - Refill carvedilol 12.5 mg, with instructions to continue taking twice daily as needed. - Continue the current medication regimen as managed at home until the patient can be seen by cardiology. - The patient was advised to contact the cardiology office to request an earlier appointment, as the currently scheduled one in September is too far out. - It was suggested that she ask to be seen at the same time as her , who has an appointment in May. 2. Tinnitus - The patient's report of tinnitus was noted, but no specific evaluation or management plan was discussed during this visit. Discussion Notes I explained that I requested this visit to clarify the patient's carvedilol dosing, as the records showing a jump from 3.125 mg to 12.5 mg were unclear. It was clarified that her caregiver adjusts her dose based on home blood pressure readings to prevent the severe hypotension she experienced in the past with lisinopril. Given her complex history and caregiver's active management, I agreed to continue the current flexible dosing regimen by refilling both carvedilol 3.125 mg and 12.5 mg for three months. We discussed the importance of the cardiology consult, and I strongly advised her to call and request an earlier appointment than the one scheduled for September, suggesting she could try to be seen at the same time as her in May. The plan is to await recommendations from cardiology for long-term management. Patient Instructions - Continue to take your carvedilol as directed by your caregiver based on your home blood pressure readings. - I have sent refills for both carvedilol 3.125 mg and 12.5 mg to your pharmacy for a 3-month supply. - Please call your heart doctor's (electrocardiograph technician's) office to ask for an earlier appointment. - You can mention that your has an appointment in May and ask if you can be seen at the same time. - It is important to see the electrocardiograph technician for their advice on how to manage your blood pressure medications in the future due to your cardiac history Medical Decision Making The patient is a 79-year-old female with a complex history of hypertension and significant medication-induced hypotension. The visit was prompted by a need to reconcile a confusing carvedilol dosing regimen noted in her chart. History revealed her 84-year-old manages her medications, titrating carvedilol doses based on frequent home blood pressure monitoring to avoid repeat episodes of syncope, which occurred previously with lisinopril when her blood pressure dropped as low as 40/70 mmHg. He uses the 3.125 mg dose for moderate elevations and reserves the 12.5 mg dose for significantly high readings, a strategy born from convenience and safety concerns. Given this context, the decision was made to support the current home management strategy temporarily. I have prescribed a 3-month supply of both carvedilol 3.125 mg and 12.5 mg to bridge her care until her cardiology appointment. The patient was strongly advised to seek an earlier cardiology consultation to establish a more stable, long-term therapeutic plan, as the current regimen is not ideal but is a pragmatic short-term solution to prevent harm. Her complaint of tinnitus was noted but is a secondary concern to be addressed after her cardiovascular status is stabilized. Total Time Statement 20 min Total time spent caring for the patient today includes pre-visit chart review, documentation, review of laboratory and diagnostic imaging results, medication reconciliation, medically necessary evaluation, counseling on diagnoses, care coordination, ordering appropriate tests and medications, review of tests performed by other providers, reporting test results to the patient, and communication with other healthcare providers. Medications: New carvedilol 3.125 mg PO BID 180 tabs 0RF carvedilol must administer with a meal/food 12.5 mg PO BID 180 tabs 0RF
== END 2025-03-29 11:57 | disposition home or self-care (01) ==
LOC: HO.HMCFMS 10:58
PROVIDERS: PCP Student in an Organized Health Care Education/Training Program; Visit Provider Student in an Organized Health Care Education/Training Program
DX: I10 Essential (primary) hypertension (principal); Z95.5 Presence of coronary angioplasty implant and graft; I25.10 Atherosclerotic heart disease of native coronary artery without angina pectoris; I70.90 Unspecified atherosclerosis; H93.19 Tinnitus, unspecified ear; Z99.89 Dependence on other enabling machines and devices; F41.9 Anxiety disorder, unspecified

== ENCOUNTER → 2025-03-29 10:57 | Outpatient (BNVA) | payer MEDICARE, SELFPAY | PROVIDERS: PCP Student in an Organized Health Care Education/Training Program; Visit Provider Student in an Organized Health Care Education/Training Program | DX: I10 Essential (primary) hypertension (principal); I25.10 Atherosclerotic heart disease of native coronary artery without angina pectoris; I70.90 Unspecified atherosclerosis; Z95.5 Presence of coronary angioplasty implant and graft; Z13.31 Encounter for screening for depression; Z13.39 Encounter for screening examination for other mental health and behavioral disorders; Z79.899 Other long term (current) drug therapy | CPT/HCPCS: 96127; 99212 ==